=== PATIENT | female | born 1955 | race Caucasian/White ===

== ENCOUNTER 2022-01-08 06:05 | Outpatient (REF) | payer MEDICARE, SELFPAY ==
[2022-01-08 13:27] LABS: Alanine Aminotransferase 13 U/L (0-31); Anion Gap 12 (12-20); Aspartate Amino Transferase 19 U/L (5-31); Blood Urea Nitrogen 13 mg/dL (9-16); Calcium 9.3 mg/dL (8.4-10.2); Carbon Dioxide 27 mmol/L (22-29); Chloride 105 mmol/L (96-108); Cholesterol 232 mg/dL; Estimated Glomerular Filt Rate > 60; Glucose Fasting 91 mg/dL (60-99); HDL Cholesterol 62 mg/dL; LDL Cholesterol Calculated 153 mg/dl; Potassium 3.9 mmol/L (3.3-5.1); Sodium 140 mmol/L (135-145); Triglycerides 89 mg/dL
[2022-01-08 13:28] LABS: Vitamin D 25-OH Total 44.7 ng/mL (>30)
== END 2022-01-08 06:06 | disposition home or self-care (01) ==
LOC: HO.HMGCLDS 06:05
PROVIDERS: Visit Provider Internal Medicine
DX: I10 Essential (primary) hypertension (principal); N95.9 Unspecified menopausal and perimenopausal disorder
CPT/HCPCS: 36415; 80048; 80061; 82306; 84450; 84460

== ENCOUNTER 2022-08-31 07:07 | Outpatient (REF) | payer MEDICARE, SELFPAY ==
[2022-08-31 11:24] LABS: Appearance Urine Clear; Color Urine Yellow; Glucose Urine UA Negative (Negative); Leukocyte Esterase Urine Negative (Negative); Nitrite Urine Negative (Negative); PH 5.5 (5.0-9.0); Specific Gravity - Urine <= 1.005 (1.005-1.025); Urine Blood Negative (Negative); Urine Ketones Negative (Negative); Urine Protein Negative (Neg-Trace)
[2022-08-31 11:45] LABS: Alanine Aminotransferase 12 U/L (0-31); Anion Gap 14 (12-20); Aspartate Amino Transferase 22 U/L (5-31); Blood Urea Nitrogen 12 mg/dL (9-16); Calcium 9.9 mg/dL (8.4-10.2); Carbon Dioxide 30 mmol/L (22-29); Chloride 102 mmol/L (96-108); Cholesterol 239 mg/dL; Estimated Glomerular Filt Rate > 60; Glucose Fasting 91 mg/dL (60-99); HDL Cholesterol 65 mg/dL; LDL Cholesterol Calculated 161 mg/dl; Potassium 4.5 mmol/L (3.3-5.1); Sodium 141 mmol/L (135-145); Triglycerides 65 mg/dL
== END 2022-08-31 07:08 | disposition home or self-care (01) ==
LOC: HO.HMGCLDS 07:07
PROVIDERS: PCP Internal Medicine; Visit Provider Internal Medicine
DX: Z00.01 Encounter for general adult medical examination with abnormal findings (principal); E78.5 Hyperlipidemia, unspecified; I10 Essential (primary) hypertension; Z78.0 Asymptomatic menopausal state
CPT/HCPCS: 36415; 80048; 80061; 81003; 82306; 84450; 84460

== ENCOUNTER 2023-03-04 07:10 | Outpatient (REF) | payer MEDICARE, SELFPAY ==
[2023-03-04 12:26] LABS: Alanine Aminotransferase 12 U/L (0-31); Aspartate Amino Transferase 22 U/L (5-31); Cholesterol 217 mg/dL; Glucose Fasting 94 mg/dL (60-99); HDL Cholesterol 60 mg/dL; LDL Cholesterol Calculated 140 mg/dl; Triglycerides 85 mg/dL
== END 2023-03-04 07:11 | disposition home or self-care (01) ==
LOC: HO.HMGCLDS 07:10
PROVIDERS: PCP Internal Medicine; Visit Provider Internal Medicine
DX: E78.5 Hyperlipidemia, unspecified (principal); I10 Essential (primary) hypertension
CPT/HCPCS: 36415; 80061; 82947; 84450; 84460

== ENCOUNTER 2023-03-11 08:55 | Outpatient (AMB) | payer MEDICARE, SELFPAY ==
--- NOTE | 2023-03-11 08:58 | A.OFFPC_ITS ---
Vital Signs 03/11/23 09:07 Height 4 in Weight 114 lb BMI 5008.9 BP 130/70 Blood Pressure Location Lt brachial Position Sitting Pulse 87 Pulse Source Pulse Oximeter Pulse Oximetry (%) 98 Oxygen Delivery Method Room Air Intake Visit Reasons: ffup lipids, htn Intake Note: Pt is here today for her f/u lipids and HTN Allergies Penicillins Adverse Reaction (Verified 03/11/23 09:17) joint swelled Medication List - Last Reconciled 03/11/23 by Marsha Wright MD amlodipine 7.5 mg (1.5 x 5 mg) PO DAILY 90 days calcium carbonate-vitamin D3 600 mg-12.5 mcg (500 unit) (Calcium 600 with Vitamin D3) caps PO magnesium oxide 500 mg PO DAILY Tobacco use date assessed: 03/11/23 Fall risk assessment: No Falls in past year Last assessed Fall Risk: 03/11/23 Dental Screening Dental Screen Date: 03/11/23 Did you have a dental visit in the last 12 months?: Yes Did you have a dental problem in the last 6 months where you did not have access to dental care?: No Was dental information given to patient?: Patient has dentist HPI ffup lipids, htn HPI Details 67-year-old lady here today for follow-up on her hypertension lipids currently on amlodipine 7.5 mg daily. She states that she has been checking her blood pressure at home with the blood pressure monitor that is has a brachial cuff, and has always been running with around 120/70 to 130/80. No reports of chest pain, no headache, no shortness of breath. Latest fasting labs showed normal fasting glucose, with improvement in her LDL cholesterol now down to 140 from 160 mg per dL, and HDL cholesterol is good [facility] Medical History Bilateral impacted cerumen Colonoscopy refused Essential hypertension Hx of renal calculi Hyperlipidemia Mammogram declined Refused influenza vaccine Refused pneumococcal vaccination Right wrist pain Varicose veins of left lower extremity Surgical History Hx of vein stripping Family History Sister Essential hypertension Social History Housing: House Patient Tobacco Use Status: Never used Tobacco e-Cigarette/Vaping Use: Never Used service: No Current occupational status: employed Cognitive needs: No Hearing needs: No Vision needs: Yes Questionnaire PHQ-9 Over the last 2 weeks, how often have you been bothered by any of the following problems? 1. Little interest or pleasure in doing things: not at all 2. Feeling down, depressed, or hopeless: not at all 3. Trouble falling or staying asleep, or sleeping too much: not at all 4. Feeling tired or having little energy: not at all 5. Poor appetite or overeating: not at all 6. Feeling bad about yourself - or that you are a failure or have let yourself or your family down: not at all 7. Trouble concentrating on things, such as reading the newspaper or watching television: not at all 8. Moving or speaking so slowly that other people could have noticed. Or the opposite - being so fidgety or restless that you have been moving around a lot more than usual: not at all 9. Thoughts that you would be better off or of hurting yourself in some way: not at all Total score: 0 Depression Screening Interpretation: Negative [id number] - PHQ-9 Billing: Yes Source: Developed by Drs. Daniel Bhandari, Lily Trimble, Eriberto Mason and colleagues, with an educational laila from [employer]. Thrive Questionnaire Date Thrive assessed: 03/11/23 I am a: Patient What is your living situation today?: I have a steady place to live Within the past 12 months, did the food you bought not last and you didn't have the money to get more?: Never true Within the past 12 months, did you worry whether your food would run out before you got money to buy more?: Never true Do you have trouble paying for medicines?: No Do you have trouble getting transportation to medical appointments?: No Do you have trouble paying your heating and electricity bill?: No Do you have trouble taking care of your child, family member or friend?: No Do you have trouble with day-to-day activities such as bathing, preparing meals, shopping, managing finances, etc.?: No Are you currently unemployed and looking for a job?: No Are you interested in more education?: No AUDIT C Alcohol Use Questionnaire (AUDIT-C) 1. How often do you have a drink containing alcohol?: Monthly or less 2. How many drinks containing alcohol do you have on a typical day when you are drinking?: 1 or 2 3. How often do you have six or more drinks on one occasion?: Never Total Score: 1 MILTON-7 AMB Questionnaire MILTON-7 Date MILTON - 7 assessed: 03/11/23 Feeling nervous, anxious, or on edge: 0 = Not at all Not being able to stop or control worryin = Not at all Worrying too much about different things: 0 = Not at all Trouble relaxin = Not at all Being so restless that it is hard to sit still: 0 = Not at all Becoming easily annoyed or irritable: 0 = Not at all Feeling afraid as if something awful might happen: 0 = Not at all Total MILTON-7 score (0-4 normal; 5-9 mild; 10-14 moderate; 15-21 severe): 0 Source: Developed by Drs. Daniel Bhandari, Lily Trimble, Eriberto Mason and colleagues, with an educational laila from [employer]. Review of Systems Const Denies body aches, Denies fatigue, Denies fever(s), Denies headache(s) and Denies weakness Eyes Denies change in vision ENT Denies dizziness, Denies headache(s), Denies nasal congestion, Denies nasal discharge and Denies sore throat Card Denies chest pain, Denies lightheadedness, Denies palpitations and Denies dyspnea Resp Denies chest congestion, Denies cough and Denies dyspnea GI Denies abdominal pain, Denies change in bowel habits and Denies heartburn Musc Reports no additional complaints Neuro Denies dizziness, Denies headache(s), Denies Sensory deficit (Neuro) and Denies weakness Endo Denies fatigue, Denies polydipsia, Denies polyuria and Denies palpitations Physical exam (Primary Care) Vital Signs: Last Vital Signs Pulse 87 03/11/23 09:07 BP 130/70 03/11/23 09:07 Pulse Ox 98 03/11/23 09:07 Oxygen Delivery Method Room Air 03/11/23 09:07 BMI result Body Mass Index 5008.9 Tobacco/Smoking Status: Tobacco use Status Tobacco use date assessed 03/11/23 03/11/23 09:06 Patient Tobacco Use Status Never used Tobacco 03/11/23 08:58 e-Cigarette/Vaping Use Never Used 03/11/23 08:58 PHQ-9: PHQ-9 Score PHQ-9: Total score 0 03/11/23 09:39 Depression Screening Interpretation: Negative Thrive Assessment: Date of Thrive Assessment Date Thrive assessed 03/11/23 03/11/23 09:10 Const Other: Alert oriented x3 no acute distress noted, ambulatory normal gait Nutritional Appearance: thin HENMT Head: Yes normocephalic Ears: external ears normal and Abnormal EAC present excessive cerumen bilateral General nose exam: Normal external nose present Face and sinus: Yes face symmetric Mouth: Normal oral and palatal mucosa present, oropharynx normal and moist mucous membranes Eyes General: appearance normal, both eyes and all related structures Neck Other: Nonpalpable thyroid Neck: Yes full ROM, Yes no lymphadenopathy and Yes supple Resp Effort & Inspection: normal respiratory effort and able to speak in complete sentences Auscultation: clear to auscultation bilaterally Cardio Other: S1-S2 present regular rate and rhythm GI Palpation (GI): Soft to palpation, nontender and no guarding Back/Spine/Pelvis Back: No back tenderness Neuro Sensory Exam: No Sensory deficit (Neuro) Extrem General: Yes full ROM, Yes no joint enlargement, Yes no clubbing, cyanosis or edema, Yes no calf tenderness and Yes normal gait Results Reviewed Results Reviewed: ENTERED: 03/04/23 GEM ANDUJAR: ORDERED: Glu Fasting, AST, ALT, Lipid Panel Test Result Flag Reference Site FBS 94 60-99 mg/dL AST (GOT) 22 5-31 U/L ALT (GPT) 12 0-31 U/L Triglyceride 85 mg/dL Desirable Triglyceride: less than 150 mg/dL Borderline High Triglyceride 150-199 mg/dL High Triglyceride: 200-499 mg/dL Very High Triglyceride: greater than or equal to 5OO mg/dL Chol 217 mg/dL Desirable Cholesterol: less than 200 mg/dL Borderline High Cholesterol: 200-239 mg/dL High Cholesterol: greater than 239 mg/dL LDL Calculated 140 mg/dl Desirable LDL: less than 100 mg/dL Near Optimal/Above Optimal LDL: 110-129 mg/dL Borderline High LDL: 130-159 mg/dL High LDL: 160-189 mg/dL Very High LDL: greater than or equal to 190 mg/dL HDL 60 mg/dL Desirable HDL: greater than 40 mg/dL Note: This HDL assay may give artificially low results in patients with liver disease. Assessment and Plan Assessment & Plan (1) Hyperlipidemia: Code(s): E78.5 - Hyperlipidemia, unspecified Plan: Reviewed recent fasting lipid profile with patient with improvement in LDL cholesterol came but still not at goal of less than 130 mg/dL here . Continue with a low-cholesterol diet and regular exercise, at least 30 minutes 3 to 4 times a week. Advised patient to make healthy food choices, eat more fruits, vegetables, whole grains, wild caught fish and low-fat dairy. Limit amount of meat and fried or fatty food products, as well as processed foods and fast foods. Follow-up scheduled with repeat fasting lipid panel in 3 months. (2) Essential hypertension: Code(s): I10 - Essential (primary) hypertension Plan: Blood pressure at goal of less than 130/80. Continue with current medication. Reinforced importance of following a low sodium diet, getting regular exercise, and lowering stress levels. Orders: Orders Basic Metabolic Panel Fasting Today E78.5 - Hyperlipidemia, unspecified, I10 - Essential (primary) hypertension, R53.83 - Other fatigue Glucose Fasting Today E78.5 - Hyperlipidemia, unspecified, I10 - Essential (primary) hypertension, R53.83 - Other fatigue Lipid Panel Today E78.5 - Hyperlipidemia, unspecified, I10 - Essential (primary) hypertension, R53.83 - Other fatigue Vitamin D 25-OH Total Today E78.5 - Hyperlipidemia, unspecified, I10 - Essential (primary) hypertension, R53.83 - Other fatigue, Z78.0 - Asymptomatic menopausal state Coding Level of Care Code Est Pt Level 3 (01705) Diagnoses Hyperlipidemia E78.5 Essential hypertension I10
[2023-03-11 09:07] VITALS: BP 130/70; PULSE 87; O2SAT 98; BMI 5008.9
== END 2023-03-11 10:13 | disposition home or self-care (01) ==
PROVIDERS: Visit Provider Internal Medicine
DX: E78.5 Hyperlipidemia, unspecified (principal); I10 Essential (primary) hypertension
CPT/HCPCS: 99213

== ENCOUNTER 2023-05-20 08:57 | Outpatient (AMB) | payer MEDICARE, SELFPAY ==
--- NOTE | 2023-05-20 10:10 | AM.OFFWIN_ITS ---
Intake Vital Signs 05/20/23 10:12 Height 5 ft 4 in Weight 117 lb BMI 20.1 BP 130/80 Blood Pressure Location Rt brachial Position Sitting Pulse 113 H Pulse Source Pulse Oximeter Temp 96.8 F Temp Source Temporal Artery Scan Pulse Oximetry (%) 113 H Oxygen Delivery Method Room Air Intake Visit Reasons: EP Cyst on bottom [phone] Intake Note: pt is here today for cyst on bottom Patient Tobacco Use Status: Never used Tobacco Allergies Penicillins Adverse Reaction (Verified 05/20/23 10:55) joint swelled Medication List - Last Reconciled 05/20/23 by Merrill Fernandez MD amlodipine 7.5 mg (1.5 x 5 mg) PO DAILY 90 days calcium carbonate-vitamin D3 600 mg-12.5 mcg (500 unit) (Calcium 600 with Vitamin D3) caps PO magnesium oxide 500 mg PO DAILY Do you need a note to return to daycare/school/sports/work: Yes HPI EP Cyst on bottom [phone] HPI Details 67-year-old female presents to the [facility] for a sick visit. Patient feels she has a boil on her right buttock and would like it examined. She has had it for a few days. [facility] Medical History Hyperlipidemia Bilateral impacted cerumen Refused influenza vaccine Refused pneumococcal vaccination Colonoscopy refused Mammogram declined Right wrist pain Hx of renal calculi Varicose veins of left lower extremity Essential hypertension Surgical History Hx of vein stripping Family History Sister Essential hypertension Social History Housing: House Patient Tobacco Use Status: Never used Tobacco e-Cigarette/Vaping Use: Never Used service: No Current occupational status: employed Cognitive needs: No Hearing needs: No Vision needs: Yes Physical Exam Vital Signs: Last Vital Signs Temp 96.8 F 05/20/23 10:12 Pulse 113 H 05/20/23 10:12 BP 130/80 05/20/23 10:12 Pulse Ox 113 H 05/20/23 10:12 Oxygen Delivery Method Room Air 05/20/23 10:12 BMI result Body Mass Index 20.1 Skin Other: Exam done with a female medical billing coder in the office. Right buttock: Small brownish lesion, non indurated. Mildly tender. No punctum of fluctuant area identified. Assessment & Plan Assessment & Plan (1) Cellulitis of buttock, right: Code(s): L03.317 - Cellulitis of buttock Plan: Antibiotics called in. Follow-up here if symptoms do not improve. Coding Level of Care Code Est Pt Level 3 (76700) Diagnoses Cellulitis of buttock, right L03.317
[2023-05-20 10:12] VITALS: BP 130/80; PULSE 113; TEMP 36; O2SAT 113; BMI 20.1
== END 2023-05-20 11:07 | disposition home or self-care (01) ==
PROVIDERS: PCP Internal Medicine; Visit Provider Internal Medicine
DX: L03.317 Cellulitis of buttock (principal)
CPT/HCPCS: 99213

== ENCOUNTER 2023-06-10 07:21 | Outpatient (REF) | payer MEDICARE, SELFPAY ==
[2023-06-10 11:45] LABS: Anion Gap 13 (12-20); Blood Urea Nitrogen 11 mg/dL (9-16); Calcium 10.4 mg/dL (8.4-10.2); Carbon Dioxide 30 mmol/L (22-29); Chloride 101 mmol/L (96-108); Cholesterol 237 mg/dL (<200); Estimated Glomerular Filt Rate > 60; Glucose Fasting 89 mg/dL (60-99); HDL Cholesterol 67 mg/dL (>40); LDL Cholesterol Calculated 154 mg/dL (<100); Potassium 4.1 mmol/L (3.3-5.1); Sodium 140 mmol/L (135-145); Triglycerides 80 mg/dL (<150)
[2023-06-10 12:04] LABS: Vitamin D 25-OH Total 101.9 ng/mL (>30)
== END 2023-06-10 07:22 | disposition home or self-care (01) ==
LOC: HO.HMGCLDS 07:21
PROVIDERS: PCP Internal Medicine; Visit Provider Internal Medicine
DX: E78.5 Hyperlipidemia, unspecified (principal); I10 Essential (primary) hypertension; R53.83 Other fatigue; Z78.0 Asymptomatic menopausal state
CPT/HCPCS: 36415; 80048; 80061; 82306

== ENCOUNTER 2023-06-17 09:41 | Outpatient (AMB) | payer MEDICARE, SELFPAY ==
--- NOTE | 2023-06-17 10:26 | A.OFFPC_ITS ---
Vital Signs 06/17/23 10:30 Height 5 ft 4 in Weight 115 lb 8 oz BMI 19.8 BP 135/70 Blood Pressure Location Lt brachial Position Sitting Pulse 86 Pulse Source Pulse Oximeter Pulse Oximetry (%) 100 Oxygen Delivery Method Room Air Intake Visit Reasons: Annual Physical Intake Note: pt is here for her Annual PE Allergies Penicillins Adverse Reaction (Verified 06/17/23 10:57) joint swelled Medication List - Last Reconciled 06/17/23 by Marsha Wright MD amlodipine 7.5 mg (1.5 x 5 mg) PO DAILY 90 days calcium carbonate-vitamin D3 600 mg-12.5 mcg (500 unit) (Calcium 600 with Vitamin D3) caps PO magnesium oxide 500 mg PO DAILY Tobacco use date assessed: 06/17/23 Fall risk assessment: No Falls in past year Last assessed Fall Risk: 06/17/23 Dental Screening Dental Screen Date: 06/17/23 Did you have a dental visit in the last 12 months?: Yes Did you have a dental problem in the last 6 months where you did not have access to dental care?: No Was dental information given to patient?: Patient has dentist HPI Annual Physical HPI Details 67-year-old lady with hypertension dylan hernandez on amlodipine, here today for physical exam. She has been eating a lot of potato chips and pastries. Has been checking her blood pressure at home and has been running from between 130/60 to a high of 160/80. Denies any chest pain, no shortness of breath, no dizziness, no palpitations reported. She does not want to get any screening mammogram, bone density screening, Pap smear or colon cancer screening. She did have her flu shot already but does not want to get a COVID booster or the pneumonia vaccine. She goes to her dentist every 6 months, and sees an eye doctor in [facility] but has not been seen for urine now. Complains of trigger finger left middle, usually in the morning, lacks is throughout the day. Denies any pain at present time. [facility] Medical History (Updated 06/17/23 @ 11:25 by Marsha Wright MD) Trigger finger, left middle finger Hyperlipidemia Bilateral impacted cerumen Refused influenza vaccine Refused pneumococcal vaccination Colonoscopy refused Mammogram declined Right wrist pain Hx of renal calculi Varicose veins of left lower extremity Essential hypertension Surgical History Hx of vein stripping Family History Sister Essential hypertension Social History Housing: House Patient Tobacco Use Status: Never used Tobacco e-Cigarette/Vaping Use: Never Used service: No Current occupational status: employed Cognitive needs: No Hearing needs: No Vision needs: Yes Questionnaire PHQ-9 Over the last 2 weeks, how often have you been bothered by any of the following problems? Depression Screening Interpretation: Negative Depression Screening Done: Yes 78846 - PHQ-9 Billing: Yes Source: Developed by Drs. Daniel Bhandari, Lily Trimble, Eriberto Mason and colleagues, with an educational laila from [employer]. Thrive Questionnaire Date Thrive assessed: 03/11/23 MILTON-7 AMB Questionnaire MILTON-7 Date MILTON - 7 assessed: 03/11/23 Source: Developed by Drs. Daniel Bhandari, Lily Trimble, Eriberto Mason and colleagues, with an educational liala from [employer]. Review of Systems Const Denies body aches, Denies fatigue, Denies fever(s), Denies headache(s) and Denies weakness Eyes Details: She sees an eye doctor in [facility] Denies change in vision ENT Denies dizziness, Denies headache(s), Denies nasal congestion, Denies nasal discharge and Denies sore throat Card Denies chest pain, Denies lightheadedness, Denies palpitations and Denies dyspn ea Resp Denies chest congestion, Denies cough and Denies dyspnea GI Denies abdominal pain, Denies change in bowel habits and Denies heartburn Reports no additional complaints Musc Reports no additional complaints Skin/Breast Denies breast swelling, Denies breast pain, Denies breast mass, Denies lesions and Denies rash Neuro Denies dizziness, Denies headache(s), Denies Sensory deficit (Neuro) and Denies weakness Psych Reports no additional complaints Endo Denies fatigue, Denies polydipsia, Denies polyuria and Denies palpitations Shay/Lymph Reports no additional complaints Aller/Immun Reports no additional complaints Physical exam (Primary Care) Vital Signs: Last Vital Signs Pulse 86 06/17/23 10:30 BP 135/70 06/17/23 10:30 Pulse Ox 100 06/17/23 10:30 Oxygen Delivery Method Room Air 06/17/23 10:30 BMI result Body Mass Index 19.8 Tobacco/Smoking Status: Tobacco use Status Tobacco use date assessed 06/17/23 06/17/23 10:33 Patient Tobacco Use Status Never used Tobacco 06/17/23 10:27 e-Cigarette/Vaping Use Never Used 06/17/23 10:27 Depression Screening Interpretation: Negative Thrive Assessment: Date of Thrive Assessment Date Thrive assessed 03/11/23 06/17/23 10:27 Const Other: Alert oriented x3 no acute distress noted, ambulatory normal gait Nutritional Appearance: thin Orientation/consciousness: patient oriented x3 HENMT Head: Yes normocephalic Ears: external ears normal and Abnormal EAC present excessive cerumen bilateral General nose exam: Normal external nose present Face and sinus: Yes face symmetric Mouth: Normal oral and palatal mucosa present, oropharynx normal and moist mucous membranes Eyes General: appearance normal, both eyes and all related structures Neck Other: Nonpalpable thyroid Neck: Yes full ROM, Yes no lymphadenopathy and Yes supple Chest Chest palpation & inspection: normal inspection of the chest and normal palpation of entire chest wall Breast/axilla inspection: normal inspection of the breasts Breast/axilla palpation: normal palpation of the breasts Resp Effort & Inspection: normal respiratory effort and able to speak in complete sentences Auscultation: clear to auscultation bilaterally Cardio Other: S1-S2 present regular rate and rhythm GI Palpation (GI): Soft to palpation, nontender and no guarding General: Yes deferred (Declines Pap smear/pelvic exam) Back/Spine/Pelvis Back: No back tenderness Skin Other: Presence of superficial varicosities in both lower extremities , left more than the right Neuro General: patient oriented x3, gait normal, tone normal, moves all extremities, Normal light touch and pain sensation, no focal motor deficits and CN's II-XI intact bilaterally Sensory Exam: No Sensory deficit (Neuro) Extrem General: Yes full ROM, Yes no joint enlargement, Yes no clubbing, cyanosis or edema, Yes no calf tenderness and Yes normal gait Psych Appearance: grossly normal and well kempt Mental Status: mental status grossly normal Speech and movement: Normal speech and movement present Affect: normal affect Attitude: cooperative Thought process: Normal thought process present Thought content: Normal thought content present Results Reviewed Results Reviewed: Name: Debra Rowley Age/Sex: 67/F : 1955 [place] Llct#: [id number] Unit#: [id number] Attend Dr: Marsha Wright MD Re06/10/23 Status: DEP REF Location: [facility] Disch: SPEC : [id number] LUIS: 06/10/23 STATUS: COMP REQ : [id number] RECD: 06/10/[address]: Marsha Wright MD COMP: 06/10/23 ENTERED: 06/10/[address] [facility] DR: ORDERED: Met Prof Fast, Lipid Panel, Vitamin D 25-OH Test Result Flag Reference Site Sodium 140 135-145 mmol/L Potassium 4.1 3.3-5.1 mmol/L CL 101 96-108 mmol/L CO2 30 H 22-29 mmol/L Gap 13 12-20 BUN 11 9-16 mg/dL Creat 0.79 0.5-1.4 mg/dL EGFR > 60 NOTE: For -[place]i individuals, multiply the result by 1.210. Chronic Kidney Disease: Estimated GFR < 60 mL/min/1.73m2 Severe Kidney Disease: Estimated GFR < 15 mL/min/1.73m2 FBS 89 60-99 mg/dL CA 10.4 H 8.4-10.2 mg/dL Triglyceride 80 <150 mg/dL Desirable Triglyceride: less than 150 mg/dL Borderline High Triglyceride 150-199 mg/dL High Triglyceride: 200-499 mg/dL Very High Triglyceride: greater than or equal to 5OO mg/dL Cholesterol 237 H <200 mg/dL Desirable Cholesterol: less than 200 mg/dL Borderline High Cholesterol: 200-239 mg/dL High Cholesterol: greater than 239 mg/dL LDL Calculated 154 H <100 mg/dL Desirable LDL: less than 100 mg/dL Near Optimal/Above Optimal LDL: 110-129 mg/dL Borderline High LDL: 130-159 mg/dL High LDL: 160-189 mg/dL Very High LDL: greater than or equal to 190 mg/dL HDL 67 >40 mg/dL Desirable HDL: greater than 40 mg/dL Note: This HDL assay may give artificially low results in patients with liver disease. Vit D 25-OH Tot 101.9 >30 ng/mL Health Based Reference Values* < 20 ng/mL Deficient 20-30 ng/mL Insufficient > 30 ng/mL Sufficient Assessment and Plan Assessment & Plan (1) Annual visit for general adult medical examination with abnormal findings: Code(s): Z00.01 - Encounter for general adult medical examination with abnormal findings Plan: Discuss recent lab results with patient. Advised to stop taking calcium supplements and vitamin-D supplements for now as both levels are markedly el evated. Recommended dental visit every 6 months and regular eye exams, at least every 2 years. Take adequate calcium from dietary sources, do weight-bearing exercises to help maintain good muscle tone and weight control. Instructed to do self-breast exam, but patient refusing to get yearly mammogram, bone density scan or colon cancer screening. She did get her flu shot for this year but does not want to get a COVID booster nor does she want to get pneumonia vaccine or shingles vaccine. y (2) Essential hypertension: Code(s): I10 - Essential (primary) hypertension Plan: Blood pressure at goal of less than 130/80. Continue with current medication. Reinforced importance of following a low sodium diet, getting regular exercise, and lowering stress levels. Declines all vaccines, but did get her flu vaccine. Does not want to get any colon cancer screening, mammogram or bone density scan. (3) Varicose veins of left lower extremity: Code(s): I83.92 - Asymptomatic varicose veins of left lower extremity Qualifiers: Varicose vein complication: asymptomatic Qualified Code(s): I83.92 - Asymptomatic varicose veins of left lower extremity Plan: Advised to wear compression stockings especially when going on long car rides or when standing on her feet at work (4) Mammogram declined: Code(s): Z53.20 - Procedure and treatment not carried out because of patient's decision for unspecified reasons (5) Colonoscopy refused: Code(s): Z53.20 - Procedure and treatment not carried out because of patient's decision for unspecified reasons (6) Refused pneumococcal vaccination: Code(s): Z28.21 - Immunization not carried out because of patient refusal (7) Refused influenza vaccine: Code(s): Z28.21 - Immunization not carried out because of patient refusal (8) Hyperlipidemia: Code(s): E78.5 - Hyperlipidemia, unspecified Plan: Reviewed recent fasting lipid profile with patient with levels higher than last check especially with regards to her LDL cholesterol. . Stressed importance of adherence to low-cholesterol diet and regular exercise, at least 30 minutes 3 to 4 times a week. Advised patient to make healthy food choices, eat more fruits, vegetables, whole grains, wild caught fish and low-fat dairy. Limit amount of meat and fried or fatty food products, as well as processed foods and fast foods. Follow-up scheduled with repeat fasting lipid panel in 6 months. (9) Trigger finger, left middle finger: Code(s): M65.332 - Trigger finger, left middle finger Plan: Currently asymptomatic (10) Hypercalcemia: Code(s): E83.52 - Hypercalcemia Orders: Orders Lipid Panel Today E78.5 - Hyperlipidemia, unspecified, E83.52 - Hypercalcemia, I10 - Essential (primary) hypertension, Z78.0 - Asymptomatic menopausal state Aspartate Amino Transferase Today E78.5 - Hyperlipidemia, unspecified, E83.52 - Hypercalcemia, I10 - Essential (primary) hypertension, Z78.0 - Asymptomatic me nopausal state Basic Metabolic Panel Fasting Today E78.5 - Hyperlipidemia, unspecified, E83.52 - Hypercalcemia, I10 - Essential (primary) hypertension, Z78.0 - Asymptomatic menopausal state Vitamin D 25-OH Total Today E78.5 - Hyperlipidemia, unspecified, E83.52 - Hypercalcemia, I10 - Essential (primary) hypertension, Z78.0 - Asymptomatic menopausal state Alanine Aminotransferase Today E78.5 - Hyperlipidemia, unspecified, E83.52 - Hypercalcemia, I10 - Essential (primary) hypertension, Z78.0 - Asymptomatic menopausal state Calcium, Ionized Today E78.5 - Hyperlipidemia, unspecified, E83.52 - Hypercalcemia, I10 - Essential (primary) hypertension, Z78.0 - Asymptomatic menopausal state Medications: Refilled amlodipine 7.5 mg (1.5 x 5 mg) PO DAILY 135 tabs 1RF 90 days I10 - Essential (primary) hypertension Review Patient declined Mammogram: 06/17/23 Patient declined Colonoscopy: 06/17/23 Patient declined Colon Cancer Screen Lab: 06/17/23 Patient declined Pneumococcal Vaccine: 06/17/23 Coding Level of Care Code Est Pt Prev Care >65y(59849) Diagnoses Annual visit for general adult medical examination with abnormal findings Z00.01 Essential hypertension I10 Asymptomatic varicose veins of left lower extremity I83.92 Varicose vein complication: asymptomatic Mammogram declined Z53.20 Colonoscopy refused Z53.20 Refused pneumococcal vaccination Z28.21 Refused influenza vaccine Z28.21 Hyperlipidemia E78.5 Trigger finger, left middle finger M65.332 Hypercalcemia E83.52
[2023-06-17 10:30] VITALS: BP 135/70; PULSE 86; O2SAT 100; BMI 19.8
== END 2023-06-17 11:44 | disposition home or self-care (01) ==
PROVIDERS: Visit Provider Internal Medicine
DX: Z00.00 Encounter for general adult medical examination without abnormal findings (principal); I10 Essential (primary) hypertension; I83.92 Asymptomatic varicose veins of left lower extremity; Z53.20 Procedure and treatment not carried out because of patient's decision for unspecified reasons; Z28.21 Immunization not carried out because of patient refusal; E78.5 Hyperlipidemia, unspecified; M65.332 Trigger finger, left middle finger; E83.52 Hypercalcemia
CPT/HCPCS: 99397

== ENCOUNTER 2023-12-10 06:06 | Outpatient (REF) | payer MEDICARE, SELFPAY ==
[2023-12-10 11:43] LABS: Alanine Aminotransferase 14 U/L (0-31); Anion Gap 15 (12-20); Aspartate Amino Transferase 25 U/L (5-31); Blood Urea Nitrogen 12 mg/dL (9-16); Carbon Dioxide 27 mmol/L (22-29); Chloride 106 mmol/L (96-108); Cholesterol 227 mg/dL (<200); Estimated Glomerular Filt Rate > 60; Glucose Fasting 101 mg/dL (60-99); HDL Cholesterol 66 mg/dL (>40); LDL Cholesterol Calculated 147 mg/dL (<100); Potassium 4.5 mmol/L (3.3-5.1); Sodium 143 mmol/L (135-145); Triglycerides 73 mg/dL (<150); Vitamin D 25-OH Total 78.8 ng/mL (>30)
[2023-12-12 02:59] LABS: Calcium, Ionized 5.3 mg/dL (4.7-5.5)
== END 2023-12-10 06:07 | disposition home or self-care (01) ==
LOC: HO.HMGCLDS 06:06
PROVIDERS: PCP Internal Medicine; Visit Provider Internal Medicine
DX: I10 Essential (primary) hypertension (principal); E83.52 Hypercalcemia; E78.5 Hyperlipidemia, unspecified; Z78.0 Asymptomatic menopausal state
CPT/HCPCS: 36415; 80048; 80061; 82306; 82330; 84450; 84460

== ENCOUNTER 2023-12-16 09:33 | Outpatient (AMB) | payer MEDICARE, SELFPAY ==
--- NOTE | 2023-12-16 09:36 | A.OFFPC_ITS ---
Vital Signs 12/16/23 10:08 Height 5 ft 4 in Weight 114 lb BMI 19.6 BP 148/80 H Blood Pressure Location Rt brachial Position Sitting Pulse 81 Pulse Source Pulse Oximeter Pulse Oximetry (%) 99 Oxygen Delivery Method Room Air Intake Visit Reasons: 6 Month follow up Intake Note: Pt is here today for her 6 months f/u Allergies Penicillins Adverse Reaction (Verified 12/16/23 10:19) joint swelled Medication List - Last Reconciled 12/16/23 by Marsha Wright MD amlodipine 7.5 mg (1.5 x 5 mg) PO DAILY 90 days magnesium oxide 500 mg PO DAILY Tobacco use date assessed: 12/16/23 Fall risk assessment: No Falls in past year Last assessed Fall Risk: 12/16/23 Dental Screening Dental Screen Date: 06/17/23 Did you have a dental visit in the last 12 months?: Yes Did you have a dental problem in the last 6 months where you did not have access to dental care?: No Was dental information given to patient?: Patient has dentist HPI 6 Month follow up HPI Details 68-year-old lady with hypertension, and history of hypercalcemia, hyperlipidemia, here today for follow-up. She has been feeling well, blood pressure however is still running high even on amlodipine 7.5 mg daily . Has been feeling well, denies any chest pain, no lightheadedness, no shortness of breath. She however admits to having a sweet tooth , and eats a lot of pastries and ice-cream. Latest fasting labs showed normal electrolytes, fasting glucose, calcium level now within normal limits after she stopped taking her calcium supplements . Her fasting lipids showed improvement in her LDL and total cholesterol levels, but still is on the high side. [facility] Medical History Trigger finger, left middle finger Hyperlipidemia Bilateral impacted cerumen Refused influenza vaccine Refused pneumococcal vaccination Colonoscopy refused Mammogram declined Right wrist pain Hx of renal calculi Varicose veins of left lower extremity Essential hypertension Surgical History Hx of vein stripping Family History Sister Essential hypertension Social History Housing: House Patient Tobacco Use Status: Never used Tobacco e-Cigarette/Vaping Use: Never Used service: No Current occupational status: employed Cognitive needs: No Hearing needs: No Vision needs: Yes Questionnaire PHQ-9 Over the last 2 weeks, how often have you been bothered by any of the following problems? 1. Little interest or pleasure in doing things: not at all 2. Feeling down, depressed, or hopeless: not at all 3. Trouble falling or staying asleep, or sleeping too much: several days 4. Feeling tired or having little energy: not at all 5. Poor appetite or overeating: not at all 6. Feeling bad about yourself - or that you are a failure or have let yourself or your family down: not at all 7. Trouble concentrating on things, such as reading the newspaper or watching television: not at all 8. Moving or speaking so slowly that other people could have noticed. Or the opposite - being so fidgety or restless that you have been moving around a lot more than usual: not at all 9. Thoughts that you would be better off or of hurting yourself in some way: not at all Total score: 1 Depression Screening Interpretation: Negative Depression Screening Done: Yes 59243 - PHQ-9 Billing: Yes Source: Developed by Drs. Daniel Bhandari, Lily Trimble, Eriberto Mason and colleagues, with an educational laila from [employer]. Thrive Questionnaire Date Thrive assessed: 12/16/23 I am a: Patient What is your living situation today?: I have a steady place to live Within the past 12 months, did the food you bought not last and you didn't have the money to get more?: Never true Within the past 12 months, did you worry whether your food would run out before you got money to buy more?: Never true Do you have trouble paying for medicines?: No Do you have trouble getting transportation to medical appointments?: No Do you have trouble paying your heating and electricity bill?: No Do you have trouble taking care of your child, family member or friend?: No Do you have trouble with day-to-day activities such as bathing, preparing meals, shopping, managing finances, etc.?: No Are you currently unemployed and looking for a job?: No Are you interested in more education?: No THRIVE Score: 0 AUDIT C Alcohol Use Questionnaire (AUDIT-C) 1. How often do you have a drink containing alcohol?: Never Total Score: 0 MILTON-7 AMB Questionnaire MILTON-7 Date MILTON - 7 assessed: 12/16/23 Feeling nervous, anxious, or on edge: 1 = Several days Not being able to stop or control worryin = Several days Worrying too much about different things: 1 = Several days Trouble relaxin = Several days Being so restless that it is hard to sit still: 0 = Not at all Becoming easily annoyed or irritable: 0 = Not at all Feeling afraid as if something awful might happen: 0 = Not at all Total MILTON-7 score (0-4 normal; 5-9 mild; 10-14 moderate; 15-21 severe): 4 Source: Developed by Drs. Daniel Bhandari, Lily Trimble, Eriberto Mason and colleagues, with an educational laila from [employer]. MILTON-7 Assessment Billing MILTON-7 Assessment Tool: MILTON-7 Assessment 77443 Review of Systems Const Denies body aches, Denies fatigue, Denies fever(s), Denies headache(s) and Denies weakness Eyes Details: She sees an eye doctor in [facility] Denies change in vision ENT Denies dizziness, Denies headache(s), Denies nasal congestion, Denies nasal discharge and Denies sore throat Card Denies chest pain, Denies lightheadedness, Denies palpitations and Denies dyspnea Resp Denies chest congestion, Denies cough and Denies dyspnea GI Denies abdominal pain, Denies change in bowel habits and Denies heartburn Reports no additional complaints Musc Reports no additional complaints Skin/Breast Denies breast swelling, Denies breast pain, Denies breast mass, Denies lesions and Denies rash Neuro Denies dizziness, Denies headache(s), Denies Sensory deficit (Neuro) and Denies weakness Psych Reports no additional complaints Endo Denies fatigue, Denies polydipsia, Denies polyuria and Denies palpitations Shay/Lymph Reports no additional complaints Aller/Immun Reports no additional complaints Physical exam (Primary Care) Vital Signs: Last Vital Signs Pulse 81 12/16/23 10:08 BP 148/80 H 12/16/23 10:08 Pulse Ox 99 12/16/23 10:08 Oxygen Delivery Method Room Air 12/16/23 10:08 BMI result Body Mass Index 19.6 Tobacco/Smoking Status: Tobacco use Status Tobacco use date assessed 12/16/23 12/16/23 09:39 Patient Tobacco Use Status Never used Tobacco 12/16/23 09:39 e-Cigarette/Vaping Use Never Used 12/16/23 09:39 PHQ-9: PHQ-9 Score PHQ-9: Total score 1 12/16/23 10:37 Depression Screening Interpretation: Negative Thrive Assessment: Date of Thrive Assessment Date Thrive assessed 12/16/23 12/16/23 10:14 Const Other: Alert oriented x3 no acute distress noted, ambulatory normal gait Nutritional Appearance: thin Orientation/consciousness: patient oriented x3 [facility] General nose exam: Normal external nose present Face and sinus: Yes face symmetric Mouth: Normal oral and palatal mucosa present, oropharynx normal and moist muc ous membranes Eyes General: appearance normal, both eyes and all related structures Neck Other: Nonpalpable thyroid Neck: Yes full ROM, Yes no lymphadenopathy and Yes supple Resp Effort & Inspection: normal respiratory effort and able to speak in complete sentences Auscultation: clear to auscultation bilaterally Cardio Other: S1-S2 present regular rate and rhythm GI Palpation (GI): Soft to palpation, nontender and no guarding Neuro General: patient oriented x3, gait normal, tone normal, moves all extremities, Normal light touch and pain sensation, no focal motor deficits and CN's II-XI intact bilaterally Sensory Exam: No Sensory deficit (Neuro) Extrem General: Yes full ROM, Yes no joint enlargement, Yes no clubbing, cyanosis or edema, Yes no calf tenderness and Yes normal gait Psych Appearance: grossly normal and well kempt Mental Status: mental status grossly normal Speech and movement: Normal speech and movement present Affect: normal affect Attitude: cooperative Thought process: Normal thought process present Thought content: Normal thought content present Results Reviewed Results Reviewed: Name: Debra Rowley Age/Sex: 68/F : 1955 Unit#: [id number] Attend Dr: Marsha Wright MD Re12/10/23 Status: DEP REF Location: [facility] Disch: SPEC : [id number] LUIS: 12/10/23 STATUS: COMP REQ : [id number] RECD: 12/10/23-[address]: Marsha Wright MD COMP: 12/10/23-1143 ENTERED: 12/10/[address]: ORDERED: Met Prof Fast, AST, ALT, Lipid Panel, Vitamin D 25-OH Test Result Flag Reference Sodium 143 135-145 mmol/L Potassium 4.5 3.3-5.1 mmol/L CL 106 96-108 mmol/L CO2 27 22-29 mmol/L Gap 15 12-20 BUN 12 9-16 mg/dL Creat 0.76 0.5-1.4 mg/dL EGFR > 60 NOTE: For -[place] individuals, multiply the result by 1.210. Chronic Kidney Disease: Estimated GFR < 60 mL/min/1.73m2 Severe Kidney Disease: Estimated GFR < 15 mL/min/1.73m2 FBS 101 H 60-99 mg/dL A fasting glucose from 100-125 mg/dl is considered impaired (pre-diabetes). CA 10.0 8.4-10.2 mg/dL AST (GOT) 25 5-31 U/L ALT (GPT) 14 0-31 U/L Triglyceride 73 <150 mg/dL Desirable Triglyceride: less than 150 mg/dL Borderline High Triglyceride 150-199 mg/dL High Triglyceride: 200-499 mg/dL Very High Triglyceride: greater than or equal to 5OO mg/dL Cholesterol 227 H <200 mg/dL Desirable Cholesterol: less than 200 mg/dL Borderline High Cholesterol: 200-239 mg/dL High Cholesterol: greater than 239 mg/dL LDL Calculated 147 H <100 mg/dL Desirable LDL: less than 100 mg/dL Near Optimal/Above Optimal LDL: 110-129 mg/dL Borderline High LDL: 130-159 mg/dL High LDL: 160-189 mg/dL Very High LDL: greater than or equal to 190 mg/dL HDL 66 >40 mg/dL Desirable HDL: greater than 40 mg/dL Note: This HDL assay may give artificially low results in patients with liver disease. Vit D 25-OH Tot 78.8 >30 ng/mL Health Based Reference Values* < 20 ng/mL Deficient 20-30 ng/mL Insufficient > 30 ng/mL Sufficient Assessment and Plan Assessment & Plan (1) Essential hypertension: Code(s): I10 - Essential (primary) hypertension Plan: Hypertension control still not at goal of less than 130/80, increase dose of amlodipine to 10 mg daily (2) Hyperlipidemia: Code(s): E78.5 - Hyperlipidemia, unspecified Qualifiers: Hyperlipidemia type: pure hypercholesterolemia Qualified Code(s): E7 8.00 - Pure hypercholesterolemia, unspecified Plan: Latest fasting lipids showed elevated LDL cholesterol still not at goal of less than 100 mg/dL. Reinforced importance of following a low-cholesterol diet and getting regular exercise. Fasting lipid and liver enzymes ordered again in six- month Orders: Orders Alanine Aminotransferase 05/29/24 E78.5 - Hyperlipidemia, unspecified, I10 - Essential (primary) hypertension, Z78.0 - Asymptomatic menopausal state Basic Metabolic Panel Fasting 05/29/24 E78.5 - Hyperlipidemia, unspecified, I10 - Essential (primary) hypertension, Z78.0 - Asymptomatic menopausal state Aspartate Amino Transferase 05/29/24 E78.5 - Hyperlipidemia, unspecified, I10 - Essential (primary) hypertension, Z78.0 - Asymptomatic menopausal state Lipid Panel 05/29/24 E78.5 - Hyperlipidemia, unspecified, I10 - Essential (primary) hypertension, Z78.0 - Asymptomatic menopausal state Vitamin D 25-OH Total 05/29/24 E78.5 - Hyperlipidemia, unspecified, I10 - Essential (primary) hypertension, Z78.0 - Asymptomatic menopausal state Medications: New amlodipine 10 mg PO DAILY 90 tabs 1RF I10 - Essential (primary) hypertension Discontinued amlodipine Discontinued Reason: Doctor's Order 7.5 mg (1.5 x 5 mg) PO DAILY 90 days 135 tabs 1RF I10 - Essential (primary) hypertension Coding Level of Care Code Est Pt Level 4 (55952) Diagnoses Essential hypertension I10 Pure hypercholesterolemia E78.00 Hyperlipidemia type: pure hypercholesterolemia Additional Codes MILTON-7 Assessment Billing - MILTON-7 Assessment Tool: MILTON-7 Assessment 65613 ([id number])
[2023-12-16 10:08] VITALS: BP 148/80; PULSE 81; O2SAT 99; BMI 19.6
== END 2023-12-16 12:21 | disposition home or self-care (01) ==
PROVIDERS: PCP Internal Medicine; Visit Provider Internal Medicine
DX: I10 Essential (primary) hypertension (principal); E78.00 Pure hypercholesterolemia, unspecified
CPT/HCPCS: 99214

== ENCOUNTER 2024-06-15 06:08 | Outpatient (REF) | payer MEDICARE, SELFPAY ==
[2024-06-15 10:40] LABS: Alanine Aminotransferase 14 U/L (0-31); Anion Gap 13 (12-20); Aspartate Amino Transferase 28 U/L (5-31); Blood Urea Nitrogen 12 mg/dL (9-16); Calcium 9.6 mg/dL (8.4-10.2); Carbon Dioxide 28 mmol/L (22-29); Chloride 104 mmol/L (96-108); Cholesterol 210 mg/dL (<200); Estimated Glomerular Filt Rate > 60; Glucose Fasting 93 mg/dL (60-99); HDL Cholesterol 63 mg/dL (>40); LDL Cholesterol Calculated 132 mg/dL (<100); Potassium 3.9 mmol/L (3.3-5.1); Sodium 141 mmol/L (135-145); Triglycerides 78 mg/dL (<150)
[2024-06-15 10:47] LABS: Vitamin D 25-OH Total 43.4 ng/mL (>30)
== END 2024-06-15 06:09 | disposition home or self-care (01) ==
LOC: HO.HMGCLDS 06:08
PROVIDERS: PCP Internal Medicine; Visit Provider Internal Medicine
DX: E78.5 Hyperlipidemia, unspecified (principal); I10 Essential (primary) hypertension; Z78.0 Asymptomatic menopausal state
CPT/HCPCS: 36415; 80048; 80061; 82306; 84450; 84460

== ENCOUNTER 2024-06-22 08:45 | Outpatient (AMB) | payer MEDICARE, SELFPAY ==
--- NOTE | 2024-06-22 08:59 | MHC.PC.OV ---
Vital Signs 06/22/24 09:00 Height 5 ft 4 in Weight 117 lb BMI 20.1 BP 144/80 H Blood Pressure Location Lt brachial Position Sitting Pulse 94 Pulse Source Pulse Oximeter Pulse Oximetry (%) 100 Oxygen Delivery Method Room Air Intake Visit Reasons: Annual PE - see comments Intake Note: Pt is here today for her PE: Never had colonoscopy Allergies Penicillins Adverse Reaction (Verified 06/22/24 09:56) joint swelled Medication List - Last Reconciled 06/22/24 by Marsha Wright MD amlodipine 10 mg PO DAILY magnesium oxide 500 mg PO DAILY Tobacco use date assessed: 06/22/24 Fall risk assessment: 1 Fall in past year Last assessed Fall Risk: 06/22/24 Dental Screening Dental Screen Date: 06/22/24 Did you have a dental visit in the last 12 months?: Yes Did you have a dental problem in the last 6 months where you did not have access to dental care?: No Was dental information given to patient?: Patient has dentist HPI Annual PE - see comments HPI Details 69 year-old lady with past medical history of hypertension currently on amlodipine, here today for physical exam. She reports that her blood pressure is consistently high in the mornings despite taking 10mg of Amlodipine, which she has been on for an unspecified period. She typically takes her medication around 4 or 5 pm due to her work schedule and notices a drop in blood pressure to levels below 110/60 mmHg at that time. She denies experiencing dizziness, chest pain, palpitations, shortness of breath or weakness. She had previously ceased calcium supplementation in 2022 per medical advice due to elevated calcium levels. She has hyperlipidemia, with recent labs indicating a total cholesterol level of 237 mg/dL and triglycerides slightly elevated. She tries to lower her cholesterol levels by consuming steel-cut oats with honey for breakfast. There is no significant history of smoking or excessive alcohol consumption. Reports gym attendance three times a week with treadmill use. - Vaccinations: Receives annual flu shots without COVID-19 boosters; declined pneumonia, shingles, and RSV vaccinations. - Screenings: No recent mammogram, bone density scan, or colonoscopy. - Routine dental care is maintained. - due for her routine eye exam; advised to check insurance coverage for framing mechanic services in [place]. [facility] Medical History (Updated 06/28/24 @ 19:22 by Marsha Wright MD) Vaccine refused by patient Trigger finger, left middle finger Hyperlipidemia Refused influenza vaccine Refused pneumococcal vaccination Colonoscopy refused Mammogram declined Right wrist pain Hx of renal calculi Varicose veins of left lower extremity Essential hypertension Surgical History Hx of vein stripping Family History Sister Essential hypertension Social History Housing: House Patient Tobacco Use Status: Never used Tobacco e-Cigarette/Vaping Use: Never Used service: No Current occupational status: employed Cognitive needs: No Hearing needs: No Vision needs: Yes Questionnaire PHQ-9 Over the last 2 weeks, how often have you been bothered by any of the following problems? 1. Little interest or pleasure in doing things: not at all 2. Feeling down, depressed, or hopeless: not at all 3. Trouble falling or staying asleep, or sleeping too much: several days 4. Feeling tired or having little energy: not at all 5. Poor appetite or overeating: several days 6. Feeling bad about yourself - or that you are a failure or have let yourself or your family down: not at all 7. Trouble concentrating on things, such as reading the newspaper or watching television: not at all 8. Moving or speaking so slowly that other people could have noticed. Or the opposite - being so fidgety or restless that you have been moving around a lot more than usual: not at all 9. Thoughts that you would be better off or of hurting yourself in some way: not at all Total score: 2 Depression Screening Interpretation: Negative Depression Screening Done: Yes 19528 - PHQ-9 Billing: Yes Source: Developed by Drs. Daniel Bhandari, Lily Trimble, Eriberto Mason and colleagues, with an educational laila from [employer]. Thrive Questionnaire Date Thrive assessed: 06/22/24 I am a: Patient What is your living situation today?: I have a steady place to live Within the past 12 months, did the food you bought not last and you didn't have the money to get more?: Never true Within the past 12 months, did you worry whether your food would run out before you got money to buy more?: Never true Do you have trouble paying for medicines?: No Do you have trouble getting transportation to medical appointments?: No Do you have trouble paying your heating and electricity bill?: No Do you have trouble taking care of your child, family member or friend?: No Do you have trouble with day-to-day activities such as bathing, preparing meals, shopping, managing finances, etc.?: No Are you currently unemployed and looking for a job?: No Are you interested in more education?: I choose not to answer this question Please select the resources that you would like help with: None Currently or been in a relationship where the following occur: No concerns reported THRIVE Score: 0 AUDIT C Alcohol Use Questionnaire (AUDIT-C) 1. How often do you have a drink containing alcohol?: Monthly or less 2. How many drinks containing alcohol do you have on a typical day when you are drinking?: 1 or 2 3. How often do you have six or more drinks on one occasion?: Never Total Score: 1 MILTON-7 AMB Questionnaire MILTON-7 Date MILTON - 7 assessed: 06/22/24 Feeling nervous, anxious, or on edge: 0 = Not at all Not being able to stop or control worryin = Not at all Worrying too much about different things: 0 = Not at all Trouble relaxin = Not at all Being so restless that it is hard to sit still: 0 = Not at all Becoming easily annoyed or irritable: 0 = Not at all Feeling afraid as if something awful might happen: 0 = Not at all Total MILTON-7 score (0-4 normal; 5-9 mild; 10-14 moderate; 15-21 severe): 0 Source: Developed by Drs. Daniel Bhandari, Lily Trimble, Eriberto Mason and colleagues, with an educational laila from [employer]. MILTON-7 Assessment Billing MILTON-7 Assessment Tool: MILTON-7 Assessment 91798 Review of Systems Const Denies body aches, Denies fatigue, Denies fever(s), Denies headache(s) and Denies weakness Eyes Details: overdue for eye exam Reports requires corrective lenses ENT Denies dizziness, Denies headache(s), Denies nasal congestion, Denies nasal discharge and Denies sore throat Card Denies chest pain, Denies lightheadedness, Denies palpitations and Denies dyspnea Resp Denies chest congestion, Denies cough and Denies dyspnea GI Denies abdominal pain, Denies change in bowel habits and Denies heartburn Reports no additional complaints Musc Reports no additional complaints Skin/Breast Details: sees Dr Bell for routine skin exam Denies breast swelling, Denies breast pain, Denies breast mass, Denies lesions and Denies rash Neuro Denies dizziness, Denies headache(s), Denies Sensory deficit (Neuro) and Denies weakness Psych Reports no additional complaints Endo Denies fatigue, Denies polydipsia, Denies polyuria and Denies palpitations Shay/Lymph Reports no additional complaints Aller/Immun Reports no additional complaints Physical exam (Primary Care) Vital Signs: Last Vital Signs Pulse 94 06/22/24 09:00 BP 144/80 H 06/22/24 09:00 Pulse Ox 100 06/22/24 09:00 Oxygen Delivery Method Room Air 06/22/24 09:00 BMI result Body Mass Index 20.1 Tobacco/Smoking Status: Tobacco use Status Tobacco use date assessed 06/22/24 06/22/24 09:03 Patient Tobacco Use Status Never used Tobacco 06/22/24 09:03 e-Cigarette/Vaping Use Never Used 06/22/24 09:03 PHQ-9: PHQ-9 Score PHQ-9: Total score 2 06/28/24 19:22 Depression Screening Interpretation: Negative Thrive Assessment: Date of Thrive Assessment Date Thrive assessed 06/22/24 06/22/24 09:41 Currently or been in a relationship where the following occur: No concerns reported Advance Care Planning discussion: Completed/Scanned Date of discussion: 06/22/24 Who was present: patient Forms completed: Health Care Proxy Time spent: 16-45 minutes Actual minutes spent: 3 Const Other: Alert oriented x3 no acute distress noted, ambulatory normal gait Nutritional Appearance: thin Orientation/consciousness: patient oriented x3 HENMT Ears: Abnormal EAC present cerumen impaction on the right General nose exam: Normal external nose present Face and sinus: Yes face symmetric Mouth: Normal oral and palatal mucosa present, oropharynx normal and moist mucous membranes Eyes General: appearance normal, both eyes and all related structures Neck Other: Nonpalpable thyroid Neck: Yes full ROM, Yes no lymphadenopathy and Yes supple Chest Chest palpation & inspection: normal inspection of the chest Breast/axilla inspection: normal inspection of the breasts Breast/axilla palpation: normal palpation of the breasts Resp Effort & Inspection: normal respiratory effort and able to speak in complete sentences Auscultation: clear to auscultation bilaterally Cardio Other: S1-S2 present regular rate and rhythm GI Palpation (GI): Soft to palpation, nontender and no guarding General: Yes no CVA tenderness and Yes deferred (patient declined exam) Back/Spine/Pelvis Back: no CVA tenderness and No back tenderness Skin General skin exam: no rashes or lesions noted Neuro General: patient oriented x3, gait normal, tone normal, moves all extremities, Normal light touch and pain sensation, no focal motor deficits and CN's II-XI intact bilaterally Sensory Exam: No Sensory deficit (Neuro) Extrem General: Yes full ROM, Yes no joint enlargement, Yes no clubbing, cyanosis or edema, Yes no calf tenderness and Yes normal gait Psych Appearance: grossly normal and well kempt Mental Status: mental status grossly normal Speech and movement: Normal speech and movement present Affect: normal affect Attitude: cooperative Thought process: Normal thought process present Thought content: Normal thought content present Results Reviewed Results Reviewed: Name: Debra Rowley Age/Sex: 68/F : 1955 [id number] Unit#: [id number] Attend Dr: Marsha Wright MD Re06/15/24 Status: DEP REF Location: [facility] Disch: SPEC : [id number] LUIS: 06/15/24 STATUS: COMP REQ : [id number] RECD: 06/15/[address]: Marsah Wright MD COMP: 06/15/24 ENTERED: 06/15/[address]: ORDERED: Met Prof Fast, AST, ALT, Lipid Panel, Vitamin D 25-OH Test Result Flag Reference Sodium 141 135-145 mmol/L Potassium 3.9 3.3-5.1 mmol/L CL 104 96-108 mmol/L CO2 28 22-29 mmol/L Gap 13 12-20 BUN 12 9-16 mg/dL Creat 0.75 0.5-1.4 mg/dL eGFR > 60 Chronic Kidney Disease: Estimated GFR < 60 mL/min/1.73m2 Severe Kidney Disease: Estimated GFR < 15 mL/min/1.73m2 FBS 93 60-99 mg/dL CA 9.6 8.4-10.2 mg/dL AST (GOT) 28 5-31 U/L ALT (GPT) 14 0-31 U/L Triglyceride 78 <150 mg/dL Desirable Triglyceride: less than 150 mg/dL Borderline High Triglyceride 150-199 mg/dL High Triglyceride: 200-499 mg/dL Very High Triglyceride: greater than or equal to 5OO mg/dL Cholesterol 210 H <200 mg/dL Desirable Cholesterol: less than 200 mg/dL Borderline High Cholesterol: 200-239 mg/dL High Cholesterol: greater than 239 mg/dL LDL Calculated 132 H <100 mg/dL Desirable LDL: less than 100 mg/dL Near Optimal/Above Optimal LDL: 110-129 mg/dL Borderline High LDL: 130-159 mg/dL High LDL: 160-189 mg/dL Very High LDL: greater than or equal to 190 mg/dL HDL 63 >40 mg/dL Desirable HDL: greater than 40 mg/dL Note: This HDL assay may give artificially low results in patients with liver disease. Vit D 25-OH Tot 43.4 >30 ng/mL Health Based Reference Values* < 20 ng/mL Deficient 20-30 ng/mL Insufficient > 30 ng/mL Sufficient Coding Level of Care Code Est Pt Prev Care >65y(98158) Diagnoses Annual visit for general adult medical examination with abnormal findings Z00.01 Colonoscopy refused Z53.20 Essential hypertension I10 Pure hypercholesterolemia E78.00 Hyperlipidemia type: pure hypercholesterolemia Mammogram declined Z53.20 Vaccine refused by patient Z28.20 Advanced directives, counseling/discussion Z71.89 Additional Codes MILTON-7 Assessment Billing - MILTON-7 Assessment Tool: MILTON-7 Assessment 13185 ([id number]) PHQ-9 - 84703 - PHQ-9 Billing: Yes ([id number]) Vital Signs *Quality* - Advance Care Planning discussion: Completed/Scanned ([id number]) Vital Signs *Quality* - Time spent: 16-45 minutes ([id number]) Assessment & Plan Assessment & Plan (1) Annual visit for general adult medical examination with abnormal findings: Code(s): Z00.01 - Encounter for general adult medical examination with abnormal findings (2) Colonoscopy refused: Code(s): Z53.20 - Procedure and treatment not carried out because of patient's decision for unspecified reasons Category: Medical (3) Essential hypertension: Code(s): I10 - Essential (primary) hypertension Category: Medical (4) Hyperlipidemia: Code(s): E78.5 - Hyperlipidemia, unspecified Category: Medical Qualifiers: Hyperlipidemia type: pure hypercholesterolemia Qualified Code(s): E78.00 - Pure hypercholesterolemia, unspecified (5) Mammogram declined: Code(s): Z53.20 - Procedure and treatment not carried out because of patient's decision for unspecified reasons Category: Medical (6) Vaccine refused by patient: Code(s): Z28.20 - Immunization not carried out because of patient decision for unspecified reason Category: Medical (7) Advanced directives, counseling/discussion: Code(s): Z71.89 - Other specified counseling Plan: Initiated the conversation about Advanced Directives. Advanced Directives help patients prepare for current and future decisions about their medical treatment and place of care. Discussed with patient that it is a process where a patients current condition and prognosis are reviewed, their wishes for information regarding their illness are elicited, and likely medical dilemmas are presented and options discussed. Healthcare proxy form completed today. The form can be amended as needed, reviewed yearly and make changes as needed Plan - Essential Hypertension: Suggest switching the administration time of Amlodipine to nighttime and monitoring morning blood pressure. Evaluate the need for medication adjustment if blood pressure remains elevated. - Hyperlipidemia: Continue dietary modifications, consider reducing sugar intake from sweets and chocolates. - Vaccine Discussion: Encouraged receiving age-appropriate vaccinations, including the high-dose flu shot, but patient declined - Recommended scheduling a vision check with an framing mechanic. - Wax Occlusion: Advised using cerumenolytic drops to clear the right ear wax occlusion. -patient declined getting any colon cancer screening breast cancer screening done -latest fasting lab results discussed with patient which showed normal fasting glucose, electrolytes renal function, mildly elevated LDL cholesterol and normal vitamin-D level. Patient was informed and verbally consented to the use of an ambient scribe for clinic note documentation during this visit.
[2024-06-22 09:00] VITALS: BP 144/80; PULSE 94; O2SAT 100; BMI 20.1
== END 2024-06-22 10:26 | disposition home or self-care (01) ==
PROVIDERS: PCP Internal Medicine; Visit Provider Internal Medicine
DX: Z00.01 Encounter for general adult medical examination with abnormal findings (principal); Z53.20 Procedure and treatment not carried out because of patient's decision for unspecified reasons; I10 Essential (primary) hypertension; E78.00 Pure hypercholesterolemia, unspecified; Z28.20 Immunization not carried out because of patient decision for unspecified reason; Z71.89 Other specified counseling; Z00.00 Encounter for general adult medical examination without abnormal findings

== ENCOUNTER → 2024-06-22 08:45 | Outpatient (BNVA) | payer MEDICARE, SELFPAY | PROVIDERS: PCP Internal Medicine; Visit Provider Internal Medicine | DX: Z00.01 Encounter for general adult medical examination with abnormal findings (principal); I10 Essential (primary) hypertension; E78.00 Pure hypercholesterolemia, unspecified; Z71.89 Other specified counseling | CPT/HCPCS: 96127; 99397; 99497 ==

== ENCOUNTER 2024-08-24 08:23 | Outpatient (AMB) | payer MEDICARE, SELFPAY ==
[2024-08-24 08:26] VITALS: BP 142/80; PULSE 118; TEMP 36.8; O2SAT 97; BMI 20.1
--- NOTE | 2024-08-24 08:26 | AM.OFFWIN_ITS ---
Intake Vital Signs 08/24/24 08:26 Height 5 ft 4 in Weight 117 lb BMI 20.1 BP 142/80 H Blood Pressure Location Lt brachial Position Sitting Pulse 118 H Pulse Source Pulse Oximeter Temp 98.2 F Temp Source Oral Pulse Oximetry (%) 97 Intake Visit Reasons: EP cough, bilat ear pain Intake Note: pt is here for cough, bilat ear pain Patient Tobacco Use Status: Never used Tobacco Allergies Penicillins Adverse Reaction (Verified 08/24/24 08:26) joint swelled Do you need a note to return to daycare/school/sports/work: No HPI HPI Comments History of Present Illness Details 69 y/o female patient who presents to [facility] walk in clinic with c/o URI symptoms. Pt c/o Bilateral ear pain, cough and Nasal congestion since June. Symptoms on/off. [facility] Medical History (Updated 08/24/24 @ 09:15 by Kerry Matamoros NP) Cerumen impaction Vaccine refused by patient Trigger finger, left middle finger Hyperlipidemia Refused influenza vaccine Refused pneumococcal vaccination Colonoscopy refused Mammogram declined Right wrist pain Hx of renal calculi Varicose veins of left lower extremity Essential hypertension Surgical History Hx of vein stripping Family History Sister Essential hypertension Social History Housing: House Patient Tobacco Use Status: Never used Tobacco e-Cigarette/Vaping Use: Never Used service: No Current occupational status: employed Cognitive needs: No Hearing needs: No Vision needs: Yes Review of Systems Const All systems reviewed & are unremarkable except as noted in HPI and below Physical Exam Vital Signs: Last Vital Signs Temp 98.2 F 08/24/24 08:26 Pulse 118 H 08/24/24 08:26 BP 142/80 H 08/24/24 08:26 Pulse Ox 97 08/24/24 08:26 BMI result Body Mass Index 20.1 Const General: cooperative and no acute distress Orientation/consciousness: patient oriented x3 HEENT Head: Yes normocephalic Ears: external ears normal and TM abnormal obstructed by cerumen bilateral General nose exam: No nasal discharge present Face and sinus: Yes sinuses nontender Mouth: moist mucous membranes Resp Effort & Inspection: normal respiratory effort and able to speak in complete sentences Auscultation: clear to auscultation bilaterally, no crackles, no rales, no rhonchi and no wheezes Cardio Heart sounds: S1 normal heart sound present and S2 normal heart sound present Neuro General: patient oriented x3, gait normal and moves all extremities Psych Speech and movement: Normal speech and movement present Assessment & Plan Assessment & Plan (1) Cerumen impaction: Code(s): H61.20 - Impacted cerumen, unspecified ear Qualifiers: Laterality: bilateral Qualified Code(s): H61.23 - Impacted cerumen, bilateral Plan: Advised the use of OTC Debrox drops for 5-10 days. Advised to RTC if symptoms not resolved. (2) URI, acute: Code(s): J06.9 - Acute upper respiratory infection, unspecified Plan: OTC cold/cough remedies Rest and hydrate well Acetaminophen for pain relief. Coding Level of Care Code Est Pt Level 3 (18561) Diagnoses Bilateral impacted cerumen H61.23 Laterality: bilateral URI, acute J06.9 Time Spent (min) 15
--- OUTSIDE RECORDS SUMMARY | 2024-08-24 12:40 | XMS_ITS | Clinical Summary ---
Author Organization [facility] Address [address] [place] [address] Care Team Providers Care Senior Animator Name Role Phone Veronica Matias PA-C Primary Care Provider [phone] Allergies Active Allergy Reactions Criticality Noted Date Comments Penicillins 06/03/2017 Medications Medication Sig Dispensed Refills Start Date End Date Status Magnesium Oxide 400 (241.3 MG) MG TABS tablet Take 400 mg by mouth 2 (two) times a day. 0 Active Calcium Carbonate-Vit D-Min (CALCIUM 1200 PO) Take by mouth. 0 Active aspirin EC 81 MG tablet Take 81 mg by mouth daily. 0 Active amLODIPine (NORVASC) tablet 5 mg Take 1 tablet (5 mg total) by mouth daily. 90 tablet 2 01/20/2021 Active lisinopril (PRINIVIL,ZESTRIL) tablet 2.5 mg Take 1 tablet (2.5 mg total) by mouth daily. 90 tablet 1 02/27/2021 Active Active Problems Problem Noted Date Diagnosed Date Asymptomatic microscopic hematuria 01/27/2018 Overview: Neg urology eval/cysto per pt Essential hypertension 06/03/2017 White coat syndrome with diagnosis of hypertensi on 06/03/2017 Elevated LDL cholesterol level 06/03/2017 Nephrolithiasis 06/03/2017 Overview: Followed by Marylin Venous insufficiency of both lower extremities 1 08/03/2016 Resolved Problems Problem Noted Date Diagnosed Date Resolved Date Noncompliance with diagnostic testing 06/03/2017 02/27/2021 Immunizations Name Administration Dates Next Due Covid-19 (Moderna 12+) 100mcg/0.5mL dosage 11/21,10/24/2020 Influenza Quad (Afluria/Fluz one) 0.5mL >=6mon Vial (SD-IIV4) 05/29/2016 Influenza Quad (Fluarix/Fluz one/FluLaval) 0.5mL (SD-IIV4) 05/13/2020,04/28/2018,06/03/2017 Influenza Quad (Flucelvax) 0 .5mL >6mon (ccIIV4) 2019 Td (Tenivac) 11/09/2015 Social History Tobacco Use Types Packs/Day Years Used Date Smoking Tobacco: Never Smokeless Tobacco: Never Alcohol Use Standard Drinks/Week Comments Yes 0 (1 standard drink = 0.6 oz pur e alcohol) rare Sex and Gender Information Value Date Recorded Sex Assigned at Not on file Gender Identity Not on file Sexual Orientation Not on file Last Filed Vital Signs Vital Sign Reading Time Taken Comments Blood Pressure 158/88 02/27/2021 8:30 AM EDT Pulse 82 02/27/2021 7:58 AM EDT Temperature 36.8 ??C (98.3 ??F) 02/27/2021 7:58 AM ED T Respiratory Rate - - Oxygen Saturation 99% 02/27/2021 7:58 AM EDT Inhaled Oxygen Concentration - - Weight 54.9 kg (121 lb) 02/27/2021 7:58 AM EDT Height 162.6 cm (5' 4 ) 02/27/2021 7:58 AM EDT Body Mass Index 20.77 02/27/2021 7:58 AM EDT Plan of Treatment Health Maintenance Due Date Last Done Comments Depression Screening 1967 Breast Cancer Screening (Mammogram) 2006 Shingrix-Zoster Vaccine (1 of 2) 2006 DTap / Tdap / Td (1 - Tdap) 11/10/2015 11/09/2015 Fall Risk Assessment 2021 Osteoporosis Screening (DEXA Scan) 2021 Pneumococcal Vaccine (1 of 1 - PCV) 2021 Preventative Health Evaluation 02/27/2022 02/27/2021, 02/22/2020, 02/16/2019, Additional history exists COVID-19 Vaccine ( - season) 2024 11/21/2020, 10/24/2020 Influenza Vaccine (#1) 2024 , 2019, 04/28/2018, Additional history exists Colon Cancer Screening (Colonoscopy) 02/16/2029 02/16/2019 (Declined) RSV Adult > 60+ Yrs or (1 - 1-dose 75+ series) 2031 Hepatitis C Screening Completed 02/15/2020 Hepatitis B Vaccines Aged Out No long er eligible based on patient's age to complete this topic RSV Ped < 20 months Aged Out No longe r eligible based on patient's age to complete this topic Care Teams Senior Animator Relationship Specialty Start Date End Date Veronica Matias PA-C PCP - General Joy Loading Machine Operator 10/27/18
--- OUTSIDE RECORDS SUMMARY | 2024-08-24 12:40 | XMS_ITS | Data Portability ---
Author Organization [facility] [employer], [address] Address [address] [place] [address] Care Team Providers Care Partridge Farmer Name Role Phone KAYA KING Primary Care Provider Assessment No assessment recorded. Plan of Treatment Reminders Order Date Submit Date Provider Last Modified By Organization Details Last Modified Time Details Appointments None recorded. Lab rapid flu (A+B) 2021 022 [email or web address] 1 _[facility], [address] [place] [address], [phone], 09:55:36 rapid SARS CoV 2 Ag, QL IA, respiratory specimen 2021 022 [email or web address] 1 _[facility], [address] [place] [address], [phone], 09:55:36 Referral None recorded. Procedures None recorded. Surgeries None recorded. Imaging None recorded. Medication Orders None recorded. Patient TargetsNo targets recorded. Patient Instructions Encounter Date Encounter Id Patient Instructions Last Modified By Organization Details Last Modified Time 06/30/2022 [id number] influenza (flu): care instructions [email or web address] Not available 06/30/2022 09:57:12 Reason for Referral None Reported. Results Created Date Observation Date Name Description Value Unit Range Abnormal Flag Note LastModifiedBy Organization Detail LastModifiedTime 06/30/20 22 06/30/2022 rapid SARS CoV 2 Ag, QL IA, respi rator y speci men Unknown Analyte negati ve Not Available [address] [place] [address] [place], [address], 06/30/2022 08:57:25 06/30/20 22 06/30/2022 rapid SARS CoV 2 Ag, QL IA, respi rator y speci men Unknown Analyte Negati ve Not Available [address] [place] [address] [place], [address], 06/30/2022 08:57:25 06/30/20 22 06/30/2022 rapid flu (A+B) Unknown Analyte positi ve Not Available [address] [place] [address] [place], [address], 06/30/2022 08:57:06 06/30/20 22 06/30/2022 rapid flu (A+B) Unknown Analyte Negati ve Not Available [address] [place], [place] [address], [place], [address], 06/30/2022 08:57:06 06/30/20 22 06/30/2022 rapid flu (A+B) Unknown Analyte negati ve Not Available [address] [place] [address], [phone], 06/30/2022 08:57:06 Result Notes None recorded. Problems Name Problem SNOMED Code Status Onset Date Resolution Date Notes Provider Name and Address Organization Details Recorded Time History of hypertension 345465351 Active 2021 Amy Romana null, PA - [facility] 08:54:35 Problem Notes None recorded. Procedures Surgical History Date Name Laterality Status Provider Name and Address Organization Details Recorded Time Removal of tonsils completed Amy Romana PA - [facility] 06/30/2022 08:56:11 lithotripsy completed Amy Milo PA - [facility] 06/30/2022 08:56:38 Imaging Results None recorded. Procedure Notes None recorded. Medical Equipment None Reported. Allergies Allergen ID Allergen Name Allergen Category Reaction Reaction Severity Criticality Documentation Date Start Date Code Code System Note Provider Name and Address Organization Details Recorded Time 4759 Product containin g penicilli n and antibioti c (product) medicatio n arthralgi a (joint pain) moderate Not available 06/30/2022 47413 05 SNOMED Amy Romana null, PA - [facility] 08:50:34 Medications Name Sig Start Date Stop Date Status Note LastModified by Organization Details LastModified Time amlodipine 5 mg tablet TAKE 1 AND 1/2 TABLETS BY MOUTH DAILY active Not Available Not Available No t Available magnesium 1 tablet active Not Available Not A vailable Not Available calcium 1 tablet active Not Available Not Sarah ilable Not Available Vitamin D 1 tablet active Not Available Not A vailable Not Available Vitals Date Recorded Oxygen saturation Oxygen saturation in Arterial blood by Pulse oximetry Provider Name and Address Organization Details Last Updated DateTime 06/30/2022 98 % 98 % Amy Milo PA - [facility] 06/30/2022 08:48:48 Date Recorded Heart rate Provider Name an d Address Organization Details Last Updated DateTime 06/30/2022 104 /min Amy Milo PA - [facility] 1 08/31/2021 08:48:54 Date Recorded Respiratory rate Provider Name a nd Address Organization Details Last Updated DateTime 06/30/2022 18 /min Amy Milo PA - [facility] 1 08/31/2021 08:48:56 Date Recorded Body temperature Provider Name a nd Address Organization Details Last Updated DateTime 06/30/2022 99.1 [degF] Amy Romana PA - [facility] 06/30/2022 08:49:28 Date Recorded Body weight Provider Name an d Address Organization Details Last Updated DateTime 06/30/2022 84440.16 g Amy Romana PA - [facility] 1 08/31/2021 08:49:39 Date Recorded Body mass index (BMI) Body height Provider Name and Address Organization Details Last Updated DateTime 06/30/2022 18.9 kg/m2 162.56 cm Amy Romana PA - [facility] 06/30/2022 08:49:42 Date Recorded Pain severity - 0-10 verbal numeric rating [Score] - Reported Provider Name and Address Organization Details Last Updated DateTime 06/30/2022 0 Amy Avendano PA - [facility] 1 08/31/2021 08:49:57 Date Recorded Systolic blood pressure Diastolic blood pressure Provider Name and Address Organization Details Last Updated DateTime 06/30/2022 150 mm[Hg] 88 mm[Hg] Amy Avendano PA - [facility] 06/30/2022 08:48:40 Social History Question Answer Notes LastModified by Organizat ion Details LastModified Time Tobacco Smoking Status Never Smoker Amy ontiveros PA - [facility] 06/30/2022 08:55:52 What Is Your Level Of Alcohol Consumption? None Information not available 06/30/2022 Have You Had Direct Contact, Or Contact During Intimacy, With Monkeypox Rash, Scabs, Or Body Fluids From A Person With Monkeypox? No Information not available 06/30/2022 Do You Use Any Illicit Or Recreational Drugs? No Information not available 06/30/2022 Have You Recently Traveled Abroad? No Information not available 06/30/2022 Do You Or Have You Ever Used Any Other Forms Of Tobacco Or Nicotine? No Information not available 06/30/2022 Sex: Unknown Functional Status None recorded. Mental Status None recorded. Family History Relationship Description Onset Age of this Age Resolved Age Notes LastModified by Organization Details LastModified Time Father Heart disease Not available 2021 08:55:10 Medical History No medical history recorded. Gynecological HistoryNo gynecological history recorded. Obstetrics History GPAL:G 0 P 0 0 0 0 Immunizations Vaccine Type Date Status Note Provider Nam e and Address Organization Details Recorded Time SARS-COV-2 (COVID-19) vaccine, UNSPECIFIED 06/19/2022 completed Amy ontiveros PA - [facility] 06/30/2022 08:52:54 Past Encounters Encounter ID Performer Location Encounter Start Date Encounter Closed Date Diagnosis/Indication Diagnosis SNOMED-CT Code Diagnosis ICD10 Code Diagnosis Note [id number] [place] [address] [address] 06/30/2022 08:15:01 06/30/2022 09:58:22 Influenza caused by Influenza A virus 740796980 J09.X2 If you are having thick mucus, you can useMUCINEX PLAINto help with your symptoms. Mucinex helps to thin mucus and works best when you drink plenty of water/flui ds throughout the whole day. If you are having thick mucus and a cough, you can useMUCINEX -DMto help with your symptoms. Mucinex helps to thin mucus and the DM is the cough suppressan t. This will work best when you drink plenty of water/flui ds throughout the whole day. If you just have coughand not thick mucus, you can useDELSYMt o help with your symptoms. Some people feel DELSYM makes them feel a little tired so you may want to use cough drops during the day and add the DELSYM in at night. If your symptoms worsen or persist you should be re-evaluat ed. Return to [facility] or see your primary care physician if your symptoms fail to improve in 3-5 days. You should follow up sooner if your symptoms worsen significan tly or if you develop new symptoms that concern you. Drink plenty of fluids You can take acetaminop hen (generic Tylenol) as directed on the bottle. Be careful about how much you take in one day. Taking more than the recommende d amount can cause liver problems. Fever 180575596 R50.9 Health Concerns Section Related Observation LastModified by Organization Detai ls LastModified Time None Recorded Concern Status LastModified by Organization Details LastModified Time None Recorded Advance Directives Directive None Recorded Payers Encounter Date Sequence Insurance Name Policy Number Policy Osman Covered Member ID Osman Member ID Guarantor Name 06/30/2022 1 [facility] (MEDICARE REPLACEMENT/A DVANTAGE - PPO) [id number] Debra Rowley [id number] Debra Rowley Notes Date Note Type Note Provider Name and Address Organization Details Recorded Time 06/30/2022 text/html Sinus Complaints UCReported bypatient.Locatio n:sinus pressure; left side; right side Associated Symptoms:no difficulty breathing; no nausea or vomiting; no sore throat; no dizziness;nasal discharge from both nostrils;fever/ch ills;ear fullness(left) Onset/Timing:init ially started 5days ago Duration:constant Severity:moderate started 5d ago with congestion, mild cough occ prod mucus, mild aches, fevers to 101, chills, fatigue WICHO GATES MD [address] [place] [address] [place], [place], [address], PA - [facility] 06/30/2022 09:57:56 OBGyn Episode No OBEpisode recorded.
== END 2024-08-24 09:19 | disposition home or self-care (01) ==
PROVIDERS: PCP Internal Medicine; Visit Provider Nurse Practitioner Family
DX: H61.23 Impacted cerumen, bilateral (principal); J06.9 Acute upper respiratory infection, unspecified

== ENCOUNTER → 2024-08-24 08:23 | Outpatient (BNVA) | payer MEDICARE, SELFPAY | PROVIDERS: PCP Internal Medicine | DX: H61.23 Impacted cerumen, bilateral (principal); J06.9 Acute upper respiratory infection, unspecified | CPT/HCPCS: 99212 ==

== ENCOUNTER 2024-09-21 08:49 | Outpatient (AMB) | payer MEDICARE, SELFPAY ==
[2024-09-21 08:55] VITALS: BP 122/70; PULSE 93; O2SAT 98
--- NOTE | 2024-09-21 08:55 | MHC.OFFWIV ---
Intake Vital Signs 09/21/24 08:55 Weight 116 lb BP 122/70 Blood Pressure Location Lt brachial Position Sitting Pulse 93 Pulse Source Pulse Oximeter Pulse Oximetry (%) 98 Oxygen Delivery Method Room Air Intake Visit Reasons: EP ear flushing Intake Note: Patient here for right ear pain. Patient Tobacco Use Status: Never used Tobacco Allergies Penicillins Adverse Reaction (Verified 09/21/24 08:59) joint swelled Do you need a note to return to daycare/school/sports/work: No HPI HPI Comments History of Present Illness Details 69 y/o female patient who presents to the walk in for B/L Ear Irrigation. [facility] Medical History (Updated 08/24/24 @ 09:15 by Kerry Matamoros NP) Cerumen impaction Vaccine refused by patient Trigger finger, left middle finger Hyperlipidemia Refused influenza vaccine Refused pneumococcal vaccination Colonoscopy refused Mammogram declined Right wrist pain Hx of renal calculi Varicose veins of left lower extremity Essential hypertension Surgical History Hx of vein stripping Family History Sister Essential hypertension Social History Housing: House Patient Tobacco Use Status: Never used Tobacco e-Cigarette/Vaping Use: Never Used service: No Current occupational status: employed Cognitive needs: No Hearing needs: No Vision needs: Yes Review of Systems Const All systems reviewed & are unremarkable except as noted in HPI and below Physical Exam Vital Signs: Last Vital Signs Pulse 93 09/21/24 08:55 BP 122/70 09/21/24 08:55 Pulse Ox 98 09/21/24 08:55 Oxygen Delivery Method Room Air 09/21/24 08:55 Const General: cooperative and no acute distress Orientation/consciousness: patient oriented x3 HEENT Ears: external ears normal and TM abnormal obstructed by cerumen bilateral Neuro General: patient oriented x3 Psych Speech and movement: Normal speech and movement present Office Procedures Cerumen Removal From which ear canal was the cerumen removed: bilateral Removal: irrigation Notes: patient tolerated procedure well 64094-Pob Irrigation/Lavage Assessment & Plan Assessment & Plan (1) Cerumen impaction: Code(s): H61.20 - Impacted cerumen, unspecified ear Qualifiers: Laterality: bilateral Qualified Code(s): H61.23 - Impacted cerumen, bilateral Plan: B/L ear lavage performed. B/L TM clean and intact. Coding Level of Care Code Est Pt Level 4 (77015) Diagnoses Bilateral impacted cerumen H61.23 Laterality: bilateral CPT Codes Office Procedure - CPT: 50040-Qqq Irrigation/Lavage ([id number]) Time Spent (min) 20
--- OUTSIDE RECORDS SUMMARY | 2024-09-21 09:19 | XMS_ITS | Clinical Summary ---
Author Organization [facility] Address [address] [place] [address] Care Team Providers Care Surgical Instruments Inspector Name Role Phone Veronica Matias PA-C Primary Care Provider [phone] Allergies Active Allergy Reactions Criticality Noted Date [...] age to complete this topic Care Teams Surgical Instruments Inspector Relationship Specialty Start Date End Date Veronica Matias PA-C PCP - General Hearing Stenographer 10/27/18
--- OUTSIDE RECORDS SUMMARY | 2024-09-21 09:19 | XMS_ITS | Data Portability ---
Author Organization [facility] [employer] [facility], [address] Address [address] [place] [address] Care Team Providers Care Data Modeler Name Role Phone KAYA KING Primary Care Provider [phone] Assessment No assessment recorded. Plan of Treatment Reminders Order Date Submit Date Provider Last Modified By Organization Details Last Modified Time Details Appointments None recorded. Lab rapid flu (A+B) 2021 022 [email or web address] 1 _[facility], [address] [place] [address], [address], 09:55:36 rapid SARS CoV 2 Ag, QL IA, respiratory specimen 2021 022 [email or web address] 1 _[facility], [address] [place] [address], [address], 09:55:36 Referral None recorded. Procedures None recorded. Surgeries None recorded. Imaging None recorded. Medication Orders None recorded. Patient TargetsNo targets recorded. Patient Instructions Encounter Date Encounter Id Patient Instructions Last Modified By Organization Details Last Modified Time 06/30/2022 [id number] influenza (flu): care instructions [email or web address] Not available 06/30/2022 09:57:12 Reason for Referral None Reported. Results Created Date Observation Date Name Description Value Unit Range Abnormal Flag Note LastModifiedBy Organization Detail LastModifiedTime 06/30/20 22 06/30/2022 rapid SARS CoV 2 Ag, QL IA, respi rator y speci men Unknown Analyte negati ve Not Available [address] [place] [address] [place], [address], 06/30/2022 08:57:25 06/30/20 22 06/30/2022 rapid SARS CoV 2 Ag, QL IA, respi rator y speci men Unknown Analyte Negati ve Not Available [address] [place] [address] [place], [address], 06/30/2022 08:57:25 06/30/20 22 06/30/2022 rapid flu (A+B) Unknown Analyte positi ve Not Available [address] [place] [address] [place], [address], 06/30/2022 08:57:06 06/30/20 22 06/30/2022 rapid flu (A+B) Unknown Analyte Negati ve Not Available [address] [place], [place] [address], [place], [address], 06/30/2022 08:57:06 06/30/20 22 06/30/2022 rapid flu (A+B) Unknown Analyte negati ve Not Available [address] [place] [address], [address], 06/30/2022 08:57:06 Result Notes None recorded. Problems Name Problem SNOMED Code Status Onset Date Resolution Date Notes Provider Name and Address Organization Details Recorded Time History of hypertension 766468963 Active 2021 Amy Romana null, PA - [facility] 08:54:35 Problem Notes None recorded. Procedures Surgical History Date Name Laterality Status Provider Name and Address Organization Details Recorded Time Removal of tonsils completed Amy Romana PA - [facility] 06/30/2022 08:56:11 lithotripsy completed Amy Romana PA - [facility] 06/30/2022 08:56:38 Imaging Results None recorded. Procedure Notes None recorded. Medical Equipment None Reported. Allergies Allergen ID Allergen Name Allergen Category Reaction Reaction Severity Criticality Documentation Date Start Date Code Code System Note Provider Name and Address Organization Details Recorded Time 4759 Product containin g penicilli n (product) medicatio n arthralgi a (joint pain) moderate Not available 06/30/2022 65540 8001 SNOMED Amy ontiveros PA - [facility] 2 08:50:34 Medications Name Sig Start Date Stop [...] saturation in Arterial blood by Pulse oximetry Heart rate Respiratory rate Body temperature Body weight Body mass index (BMI) Body height Pain severity - 0-10 verbal numeric rating [Score] - Reported Systolic blood pressure Diastolic blood pressure Provider Name and Address Organization Details Last Updated DateTime 2 98 % 98 % 104 /min 18 /min 99.1 [degF] 77373.1 6 g 18.9 kg/m2 162.56 cm 0 150 mm[Hg] 88 mm[Hg] Amy Avendano PA - [facility] 2 08:48:40 Social History Question Answer Notes LastModified [...] Time SARS-COV-2 (COVID-19) vaccine, UNSPECIFIED 06/19/2022 completed RICH Gamez - [facility] 06/30/2022 08:52:54 Past Encounters Encounter ID Performer Location Encounter Start Date Encounter Closed Date Diagnosis/Indication Diagnosis SNOMED-CT Code Diagnosis ICD10 Code Diagnosis Note [id number] [place] [address] [address] 06/30/2022 08:15:01 06/30/2022 09:58:22 Influenza caused by Influenza A virus 485068731 J09.X2 If you are having thick mucus, [...] d amount can cause liver problems. Fever 996348847 R50.9 Health Concerns Section Related Observation LastModified by Organization Detai ls LastModified Time None Recorded Concern Status LastModified by Organization Details LastModified Time None Recorded Advance Directives Directive None Recorded Payers Encounter Date Sequence Insurance Name Policy Number Policy Osman Covered Member ID Osman Member ID Guarantor Name 06/30/2022 1 [facility] (MEDICARE REPLACEMENT/A DVANTAGE - PPO) [id number] Debra Rowley [id number] Debra Rowley Notes Date Note Type Note [...] to 101, chills, fatigue WICHO GATES MD [address] [place], [address], PA - [facility] 06/30/2022 09:57:56 OBGyn Episode No OBEpisode recorded.
== END 2024-09-21 09:43 | disposition home or self-care (01) ==
PROVIDERS: PCP Internal Medicine; Visit Provider Nurse Practitioner Family
DX: H61.23 Impacted cerumen, bilateral (principal)

== ENCOUNTER → 2024-09-21 08:49 | Outpatient (BNVA) | payer MEDICARE, SELFPAY | PROVIDERS: PCP Internal Medicine | DX: H61.23 Impacted cerumen, bilateral (principal) | CPT/HCPCS: 69209; 99212 ==

== ENCOUNTER 2024-12-23 11:19 | Outpatient (AMB) | payer MEDICARE, SELFPAY ==
--- NOTE | 2024-12-23 11:31 | MHC.OFFWIV ---
Intake Vital Signs 12/23/24 11:34 Height 5 ft 4 in Weight 114 lb 6 oz BMI 19.6 BP 140/68 H Blood Pressure Location Lt brachial Position Sitting Respiration 16 Pulse 99 Pulse Source Pulse Oximeter Temp 98.3 F Temp Source Oral Pulse Oximetry (%) 98 Oxygen Delivery Method Room Air Intake Visit Reasons: EP-lt ear pain Intake Note: EP c/o left ear pain off and on for a week Patient Tobacco Use Status: Never used Tobacco Broom Machine Operator Required: No Is last menstrual period known: No Post menopausal: No Patient : No Allergies Penicillins Adverse Reaction (Verified 12/23/24 11:33) joint swelled Do you need a note to return to daycare/school/sports/work: No HPI HPI Comments History of Present Illness Details History - The patient is a 69-year-old female presenting with ear pain. - She reports experiencing pain in her left ear for approximately one week, with occasional radiation to the head. - She denies any swelling in the lymph nodes, neck, fever, or changes in hearing. - The patient has a history of allergies, which she suspects might be contributing to her symptoms. - The ear pain has been persistent and irritating. - She has used ear flushing procedures in the past, which have provided relief, and there is no history of recent respiratory or sinus infections. Physical Exam General: Cooperative, healthy appearing, comfortable and no acute distress Orientation/consciousness: Patient oriented x3 Limitations: No limitations Head: Normal to inspection Ears: Hearing grossly normal bilaterally, external ears normal and TM's with effusion bilaterally, no infection Nose: Normal external nose present, Normal nares present and No nasal discharge present Face and sinus: Normal facial exam and Yes sinuses nontender Mouth: Normal oral and palatal mucosa present and moist mucous membranes Throat: Yes tonsils normal, Yes uvula midline. Posterior oropharynx erythema Eyes: Appearance normal, both eyes and all related structures Neck: Normal visual inspection Respiratory: Normal respiratory effort, able to speak in complete sentences, no respiratory distress, not tachypneic, no tripod positioning and no use of accessory muscles Skin: No rashes or lesions noted Neuro: Patient oriented x3 Extremities: Normal to inspection and Yes no clubbing, cyanosis or edema [facility] Medical History (Updated 12/23/24 @ 12:12 by Lori Cabral PA-C) Cerumen impaction Vaccine refused by patient Trigger finger, left middle finger Hyperlipidemia Refused influenza vaccine Refused pneumococcal vaccination Colonoscopy refused Mammogram declined Right wrist pain Hx of renal calculi Varicose veins of left lower extremity Essential hypertension Surgical History Hx of vein stripping Family History Sister Essential hypertension Social History Housing: House Patient Tobacco Use Status: Never used Tobacco e-Cigarette/Vaping Use: Never Used Patient : No service: No Current occupational status: employed Cognitive needs: No Hearing needs: No Vision needs: Yes Review of Systems Const All systems reviewed & are unremarkable except as noted in HPI and below Physical Exam Vital Signs: Last Vital Signs Temp 98.3 F 12/23/24 11:34 Pulse 99 12/23/24 11:34 Resp 16 12/23/24 11:34 BP 140/68 H 12/23/24 11:34 Pulse Ox 98 12/23/24 11:34 Oxygen Delivery Method Room Air 12/23/24 11:34 BMI result Body Mass Index 19.6 Assessment & Plan Assessment & Plan (1) Acute effusion of both middle ears: Code(s): H65.193 - Other acute nonsuppurative otitis media, bilateral Plan: VSS, pt well appearing and PE remarkable for fluid in bilat TMs, no infection. The ear pain is likely due to fluid accumulation associated with allergic rhinitis. Fluticasone nasal spray was recommended for its localized action and minimal systemic side effects, with instructions on use. Benadryl was suggested for nighttime use, with advice to monitor blood pressure. If symptoms persist, pls return as we can consider oral steroids. The patient should monitor symptoms and blood pressure and contact the clinic if needed. . Patient was informed and verbally consented to the use of an ambient scribe for clinic note documentation during this visit Coding Level of Care Code Est Pt Level 3 (72019) Diagnoses Acute effusion of both middle ears H65.193
[2024-12-23 11:34] VITALS: BP 140/68; PULSE 99; RESP 16; TEMP 36.8; O2SAT 98; BMI 19.6
--- OUTSIDE RECORDS SUMMARY | 2024-12-23 12:19 | XMS_ITS | Clinical Summary ---
Author Organization [facility] Address [address] [place] [address] Care Team Providers Care Roller Pneumatic Name Role Phone Veronica Matias PA-C Primary Care Provider [phone] Allergies Active Allergy Reactions Criticality Noted Date [...] age to complete this topic Care Teams Roller Pneumatic Relationship Specialty Start Date End Date Veronica Matias PA-C PCP - General Coordinating Producer 10/27/18
== END 2024-12-23 12:46 | disposition home or self-care (01) ==
PROVIDERS: PCP Internal Medicine; Visit Provider Physician Assistant
DX: H65.193 Other acute nonsuppurative otitis media, bilateral (principal)

== ENCOUNTER → 2024-12-23 11:19 | Outpatient (BNVA) | payer MEDICARE, SELFPAY | PROVIDERS: PCP Internal Medicine; Visit Provider Physician Assistant | DX: H65.193 Other acute nonsuppurative otitis media, bilateral (principal) | CPT/HCPCS: 99212 ==

== ENCOUNTER 2025-03-04 15:47 | Outpatient (AMB) | payer MEDICARE, SELFPAY ==
--- OUTSIDE RECORDS SUMMARY | 2025-03-04 15:49 | XMS_ITS ---
Author Name [facility] Organization Unknown Encounters Encounter Type Encounter Reason Primary Diagnosis Location Date Ambulatory [facility] 05/08/2024 Care Team Organization Name Specialty Phone Email Start Date End Da te [facility] 2024 [facility]/29[facility]22 [facility]
--- NOTE | 2025-03-04 16:24 | A.OFFPC_ITS ---
Vital Signs 03/04/25 16:26 Height 5 ft 4 in Weight 115 lb BMI 19.7 BP 126/72 Blood Pressure Location Rt brachial Position Sitting Respiration 16 Pulse 90 Pulse Source Pulse Oximeter Temp 98.1 F Temp Source Oral Pulse Oximetry (%) 99 Oxygen Delivery Method Room Air Intake Visit Reasons: f/u HTN Intake Note: Pt is here today f/u HTN Allergies Penicillins Adverse Reaction (Verified 03/08/25 01:56) joint swelled Medication List - Last Reconciled 03/08/25 by Marsha Wright MD amlodipine 10 mg PO DAILY magnesium oxide 500 mg PO DAILY Tobacco use date assessed: 03/04/25 Fall risk assessment: No Falls in past year Last assessed Fall Risk: 03/04/25 Dental Screening Dental Screen Date: 03/04/25 Did you have a dental visit in the last 12 months?: Yes Did you have a dental problem in the last 6 months where you did not have access to dental care?: No Was dental information given to patient?: Patient has dentist HPI f/u HTN HPI Details - The patient is a 69-year-old female pr esenting with hypertension and sleep disturbances. - Hypertension: Currently managed with a mlodipine 10 mg daily, with improved blood pressure readings from 140/86 mmHg to 126/72 mmHg. - Sleep disturbances: Reports waking up twice nightly to urinate, with occasional difficulty returning to sleep, but does not feel tired in the morning. - Postmenopausal symptoms: Experiences o ccasional nocturnal hot flashes. - Preventative care: Blood work ordered to recheck cholesterol and vitamin D levels. [facility] Medical History Cerumen impaction Vaccine refused by patient Trigger finger, left middle finger Hyperlipidemia Refused influenza vaccine Refused pneumococcal vaccination Colonoscopy refused Mammogram declined Right wrist pain Hx of renal calculi Varicose veins of left lower extremity Essential hypertension Surgical History Hx of vein stripping Family History Sister Essential hypertension Social History Housing: House Patient Tobacco Use Status: Never used Tobacco e-Cigarette/Vaping Use: Never Used service: No Current occupational status: employed Cognitive needs: No Hearing needs: No Vision needs: Yes Questionnaire PHQ-9 Over the last 2 weeks, how often have you been bothered by any of the following problems? 1. Little interest or pleasure in doing things: not at all 2. Feeling down, depressed, or hopeless: not at all 3. Trouble falling or staying asleep, or sleeping too much: several days 4. Feeling tired or having little energy: several days 5. Poor appetite or overeating: not at all 6. Feeling bad about yourself - or that you are a failure or have let yourself or your family down: not at all 7. Trouble concentrating on things, such as reading the newspaper or watching television: not at all 8. Moving or speaking so slowly that other people could have noticed. Or the opposite - being so fidgety or restless that you have been moving around a lot more than usual: not at all 9. Thoughts that you would be better off or of hurting yourself in some way: not at all Total score: 2 Source: Developed by Drs. Daniel Bhandari, Lily Trimble, Eriberto Mason and colleagues, with an educational laila from [employer]. Thrive Questionnaire Date Thrive assessed: 03/04/25 AUDIT C Alcohol Use Questionnaire (AUDIT-C) 1. How often do you have a drink containing alcohol?: Never Total Score: 0 MILTON-7 AMB Questionnaire MILTON-7 Date MILTON - 7 assessed: 06/22/24 Source: Developed by Drs. Daniel Bhandari, Lily Trimble, Eriberto Mason and colleagues, with an educational laila from [employer]. Review of Systems Const Denies body aches, Denies fatigue, Denies fever(s), Denies headache(s) and Denies weakness Eyes Details: overdue for eye exam Reports requires corrective lenses ENT Denies dizziness and Denies headache(s) Card Denies chest pain, Denies lightheadedness, Denies palpitations and Denies dyspnea Resp Denies chest congestion, Denies cough and Denies dyspnea GI Denies abdominal pain, Denies change in bowel habits and Denies heartburn Reports no additional complaints Musc Reports no additional complaints Neuro Denies dizziness, Denies headache(s), Denies Sensory deficit (Neuro) and Denies weakness Psych Reports no additional complaints Endo Denies fatigue, Denies polydipsia, Denies polyuria and Denies palpitations Shay/Lymph Reports no additional complaints Aller/Immun Reports no additional complaints Physical exam (Primary Care) Vital Signs: Last Vital Signs Temp 98.1 F 03/04/25 16:26 Pulse 90 03/04/25 16:26 Resp 16 03/04/25 16:26 BP 126/72 03/04/25 16:26 Pulse Ox 99 03/04/25 16:26 Oxygen Delivery Method Room Air 03/04/25 16:26 BMI result Body Mass Index 19.7 Tobacco/Smoking Status: Tobacco use Status Tobacco use date assessed 03/04/25 03/04/25 16:25 Patient Tobacco Use Status Never used Tobacco 03/04/25 16:25 e-Cigarette/Vaping Use Never Used 03/04/25 16:25 PHQ-9: PHQ-9 Score PHQ-9: Total score 2 03/04/25 16:46 Thrive Assessment: Date of Thrive Assessment Date Thrive assessed 03/04/25 03/04/25 16:25 Const Other: Alert oriented x3 no acute distress noted, ambulatory normal gait Nutritional Appearance: thin HENMT Ears: Abnormal EAC present cerumen impaction on the right General nose exam: Normal external nose present Face and sinus: Yes face symmetric Mouth: Normal oral and palatal mucosa present, oropharynx normal and moist mucous membranes Eyes General: appearance normal, both eyes and all related structures Neck Other: Nonpalpable thyroid Neck: Yes full ROM, Yes no lymphadenopathy and Yes supple Chest Chest palpation & inspection: normal inspection of the chest Breast/axilla inspection: normal inspection of the breasts Breast/axilla palpation: normal palpation of the breasts Resp Effort & Inspection: normal respiratory effort and able to speak in complete sentences Auscultation: clear to auscultation bilaterally Cardio Other: S1-S2 present regular rate and rhythm GI Palpation (GI): Soft to palpation, nontender and no guarding Back/Spine/Pelvis Back: No back tenderness Skin General skin exam: no rashes or lesions noted Neuro General: gait normal, tone normal, moves all extremities, Normal light touch and pain sensation, no focal motor deficits and CN's II-XI intact bilaterally Sensory Exam: No Sensory deficit (Neuro) Extrem General: Yes full ROM, Yes no joint enlargement, Yes no clubbing, cyanosis or edema, Yes no calf tenderness and Yes normal gait Psych Appearance: grossly normal and well kempt Mental Status: mental status grossly normal Speech and movement: Normal speech and movement present Affect: normal affect Coding Level of Care Code Est Pt Level 4 (06108) Complex EM visit Add On G2211 Diagnoses Essential hypertension I10 Pure hypercholesterolemia E78.00 Hyperlipidemia type: pure hypercholesterolemia Assessment & Plan Assessment & Plan (1) Essential hypertension: Code(s): I10 - Essential (primary) hypertension Category: Medical (2) Hyperlipidemia: Code(s): E78.5 - Hyperlipidemia, unspecified Category: Medical Qualifiers: Hyperlipidemia type: pure hypercholesterolemia Qualified Code(s): E78.00 - Pure hypercholesterolemia, unspecified Plan The patient will continue with amlodipine 10 mg daily for hypertension, with recent blood pressure readings showing improvement. Blood work is ordered to reassess cholesterol and vitamin D levels. For sleep disturbances, the patient is advised to maintain hydration during the day and limit fluid intake before bedtime. Patient was informed and verbally consented to the use of an ambient scribe for clinic note documentation during this visit. Orders: Orders Basic Metabolic Panel Fasting 03/04/25 E78.00 - Pure hypercholesterolemia, unspecified, I10 - Essential (primary) hypertension, Z78.0 - Asymptomatic menopausal state Alanine Aminotransferase 03/04/25 E78.00 - Pure hypercholesterolemia, unspecified, I10 - Essential (primary) hypertension, Z78.0 - Asymptomatic menopausal state Hemoglobin and Hematocrit 03/04/25 R25.2 - Cramp and spasm Aspartate Amino Transferase 03/04/25 E78.00 - Pure hypercholesterolemia, unspecified, I10 - Essential (primary) hypertension, Z78.0 - Asymptomatic menopausal state Lipid Panel 03/04/25 E78.00 - Pure hypercholesterolemia, unspecified, I10 - Essential (primary) hypertension, Z78.0 - Asymptomatic menopausal state Vitamin D 25-OH Total 03/04/25 E78.00 - Pure hypercholesterolemia, unspecified, I10 - Essential (primary) hypertension, Z78.0 - Asymptomatic menopausal state
[2025-03-04 16:26] VITALS: BP 126/72; PULSE 90; RESP 16; TEMP 36.7; O2SAT 99; BMI 19.7
== END 2025-03-04 16:46 | disposition home or self-care (01) ==
LOC: HO.HMCC 15:47
PROVIDERS: PCP Internal Medicine; Visit Provider Internal Medicine
DX: I10 Essential (primary) hypertension (principal); E78.00 Pure hypercholesterolemia, unspecified

== ENCOUNTER → 2025-03-04 15:47 | Outpatient (BNVA) | payer MEDICARE, SELFPAY | PROVIDERS: PCP Internal Medicine; Visit Provider Internal Medicine | DX: I10 Essential (primary) hypertension (principal); E78.00 Pure hypercholesterolemia, unspecified | CPT/HCPCS: 99212 ==

== ENCOUNTER 2025-03-22 13:03 | Outpatient (AMB) | payer MEDICARE, SELFPAY ==
[2025-03-22 13:52] VITALS: BP 148/62; PULSE 101; TEMP 37.1; O2SAT 98; BMI 19.4
--- NOTE | 2025-03-22 13:52 | AM.OFFWIN_ITS ---
Intake Vital Signs 03/22/25 13:52 03/22/25 13:56 Height 5 ft 4 in Weight 113 lb BMI 19.4 BP 148/62 H 150/64 H Blood Pressure Location Rt brachial Lt brachial Position Sitting Sitting Pulse 101 H Pulse Source Pulse Oximeter Temp 98.7 F Temp Source Oral Pulse Oximetry (%) 98 Oxygen Delivery Method Room Air Intake Visit Reasons: EP Sinus infection? Intake Note: pt presents with sinus congestion with yellow phlegm, bilateral ear pain Patient Tobacco Use Status: Never used Tobacco Allergies Penicillins Adverse Reaction (Verified 03/22/25 13:55) joint swelled Do you need a note to return to daycare/school/sports/work: No HPI HPI Comments History of Present Illness Details History of Present Illness - The patient is a 69-year-old female pr esenting with symptoms suggestive of sinusitis. - Symptoms began five to six days ago wi th clear nasal discharge and productive cough, progressing to yellow discharge and congestion. - She experiences pressure in the sinus region, affecting her gums and teeth, particularly when bending forward. - The patient denies fever but reports p ressure headaches. - She has a history of sinus infections approximately three times a year and is allergic to penicillin. - Current interventions include Flonase, used for a couple of days, and attempts to increase fluid intake despite frequent urination. - She denies FINCH, fever, chills, CP, SOB, abd pain, n/v/d, dizziness, or sore throat. Physical Exam General: Cooperative, healthy appearing, comfortable, no acute distress and well developed Head: Normal to inspection Ears: Hearing grossly normal bilaterally. No tragus or mastoid tenderness noted. Auditory canals clear bilaterally. TM's normal, not bulging. No fluid noted. Nose: Normal external nose present. Moist mucosa. Turbinates normal bilaterally, not boggy. Face and sinus: Tenderness to palpation of the frontal and maxillary sinuses bilaterally. Neck: Normal visual inspection and Yes full ROM. No lymphadenopathy noted. Respiratory: Normal respiratory effort and able to speak in complete sentences. Clear to auscultation bilaterally Cardiovascular: Regular rate and rhythm. Normal S1 and S2 GI: Normal to inspection. Soft to palpation and nontender, nondistended. No guarding noted. Skin: No rashes or lesions noted [facility] Medical History Cerumen impaction Vaccine refused by patient Trigger finger, left middle finger Hyperlipidemia Refused influenza vaccine Refused pneumococcal vaccination Colonoscopy refused Mammogram declined Right wrist pain Hx of renal calculi Varicose veins of left lower extremity Essential hypertension Surgical History Hx of vein stripping Family History Sister Essential hypertension Social History Housing: House Patient Tobacco Use Status: Never used Tobacco e-Cigarette/Vaping Use: Never Used service: No Current occupational status: employed Cognitive needs: No Hearing needs: No Vision needs: Yes Review of Systems Const All systems reviewed & are unremarkable except as noted in HPI and below Physical Exam Vital Signs: Last Vital Signs Temp 98.7 F 03/22/25 13:52 Pulse 101 H 03/22/25 13:52 BP 150/64 H 03/22/25 13:56 Pulse Ox 98 03/22/25 13:52 Oxygen Delivery Method Room Air 03/22/25 13:52 BMI result Body Mass Index 19.4 Assessment & Plan Assessment & Plan (1) Sinusitis: Code(s): J32.9 - Chronic sinusitis, unspecified Qualifiers: Sinusitis location: maxillary Chronicity: acute Recurrence: non- recurrent Qualified Code(s): J01.00 - Acute maxillary sinusitis, unspecified Plan Most likely sinusitis Plan - steam showers - tylenol or motrin as needed for pain or fever - cefpodoxime 200 mg BID for 7 days - flonase daily - follow up with PCP Medications: New cefpodoxime must administer with a meal/food 200 mg PO Q12H 14 tabs 0RF 7 days Coding Level of Care Code Est Pt Level 3 (17109) Diagnoses Acute non-recurrent maxillary sinusitis J01.00 Sinusitis location: maxillary Chronicity: acute Recurrence: non-recurrent
[2025-03-22 13:56] VITALS: BP 150/64
--- OUTSIDE RECORDS SUMMARY | 2025-03-22 14:23 | XMS_ITS | Clinical Summary ---
Author Organization [facility] Address [address] [place] [address] Care Team Providers Care Customs Guard Name Role Phone Veronica Matias PA-C Primary Care Provider [phone]- [phone] Allergies Active Allergy Reactions Criticality Noted Date [...] 82 02/27/2021 7:58 AM EDT Temperature 36.8 C (98.3 F) 02/27/2021 7:58 AM EDT Respiratory Rate - - Oxygen Saturation 99% [...] season) 2024 11/21/2020, 10/24/2020 Influenza Vaccine (#1) 2025 , 2019, 04/28/2018, Additional history exists Colon [...] age to complete this topic Care Teams Customs Guard Relationship Specialty Start Date End Date Veronica Matias PA-C PCP - General Window Decorator 10/27/18
== END 2025-03-22 14:56 | disposition home or self-care (01) ==
PROVIDERS: PCP Internal Medicine; Visit Provider Physician Assistant Medical
DX: J01.00 Acute maxillary sinusitis, unspecified (principal)

== ENCOUNTER → 2025-03-22 13:03 | Outpatient (BNVA) | payer MEDICARE, SELFPAY | PROVIDERS: PCP Internal Medicine; Visit Provider Physician Assistant Medical | DX: J01.00 Acute maxillary sinusitis, unspecified (principal) | CPT/HCPCS: 99212 ==

== ENCOUNTER 2025-04-05 06:18 | Outpatient (REF) | payer MEDICARE, SELFPAY ==
--- OUTSIDE RECORDS SUMMARY | 2025-04-05 06:20 | XMS_ITS | Clinical Summary ---
Author Organization [facility] Address [address] [place] [address] Care Team Providers Care Production Control Expediter Name Role Phone Veronica Matias PA-C Primary Care Provider [phone] Allergies Active Allergy Reactions Criticality Noted Date [...] 02/22/2020, 02/16/2019, Additional history exists COVID-19 Vaccine (3 - season) 2025 11/21/2020, 10/24/2020 Influenza Vaccine (#1) 2025 , [...] age to complete this topic Care Teams Production Control Expediter Relationship Specialty Start Date End Date Veroncia Matias PA-C PCP - General Hydrate Thickener Operator 10/27/18
[2025-04-05 14:08] LABS: Hematocrit 40.4 % (37.0-47.0); Hemoglobin 13.5 g/dl (12.0-16.0)
[2025-04-05 15:00] LABS: Alanine Aminotransferase 13 U/L (0-31); Anion Gap 12 (12-20); Aspartate Amino Transferase 31 U/L (5-31); Blood Urea Nitrogen 9 mg/dL (9-16); Calcium 9.1 mg/dL (8.4-10.2); Carbon Dioxide 28 mmol/L (22-29); Chloride 106 mmol/L (96-108); Cholesterol 205 mg/dL (<200); Estimated Glomerular Filt Rate > 60; HDL Cholesterol 62 mg/dL (>40); Potassium 3.7 mmol/L (3.3-5.1); Sodium 142 mmol/L (135-145); Triglycerides 74 mg/dL (<150)
== END 2025-04-05 06:19 | disposition home or self-care (01) ==
LOC: HO.HMGCLDS 06:18
PROVIDERS: PCP Internal Medicine; Visit Provider Internal Medicine
DX: I10 Essential (primary) hypertension (principal); E78.00 Pure hypercholesterolemia, unspecified; Z78.0 Asymptomatic menopausal state
CPT/HCPCS: 36415; 80048; 80061; 82306; 84450; 84460; 85014; 85018

== ENCOUNTER → 2025-04-22 13:48 | Outpatient (BNVA) | payer MEDICARE, SELFPAY | PROVIDERS: PCP Internal Medicine | DX: Z13.89 Encounter for screening for other disorder (principal) | CPT/HCPCS: 99211 ==

== ENCOUNTER → 2025-05-06 13:05 | Outpatient (BNVA) | payer MEDICARE, SELFPAY | PROVIDERS: PCP Internal Medicine | DX: Z13.89 Encounter for screening for other disorder (principal) | CPT/HCPCS: 99211 ==